=== PATIENT | male | born 1995 | race American Indian/Alaskan Native ===

== ENCOUNTER 2016-10-24 00:48 | Day surgery (SDC) | payer MEDICAID, OTHER ==
[2016-10-24] MEDS ORDERED: Sodium Chloride 0.9% 1,000 ML IV ONE (01:10)
[2016-10-24] MEDS ORDERED: Ondansetron 4 MG/2 ML SDV IVPUSH ONE ×2 (01:11→03:30)
[2016-10-24] MEDS ORDERED: Pantoprazole 40 MG Vial IVPUSH ONE (01:12)
[2016-10-24] MEDS: Sodium Chloride 0.9% 10 ML Syringe FLUSH PRN ×2 (01:24→02:56)
--- NOTE | 2016-10-24 01:32 | EDM.PDOC ---
ED HPI GI/ABDOMINAL - General Chief Complaint: Abdominal Pain Stated Complaint: STOMACH PAIN Time Seen by Provider: 10/24/16 01:04 Source: Reports: Patient History Limitations: Reports: Other (abd. pain) - History of Present Illness INITIAL COMMENTS - FREE TEXT/NARRATIVE: 21 years old w m s/p cholecystrectomy, came to the ed due to severe periumbilical pain 4 hours after eating spicy chicken wings. 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: Reports: NSAIDS - Related Data Allergies/ADRs: Allergies Allergy/AdvReac Type Severity Reaction Status Date / Time No Known Allergies Allergy Verified 10/24/16 00:59 Home Meds: Home Meds Naproxen 500 mg PO BID #28 tablet 05/27/14 [Rx] Pantoprazole [ProTONIX] 40 mg PO DAILY 10/24/16 [History] Past Medical History Gastrointestinal History: Reports: GERD - Past Surgical History GI Surgical History: Reports: Cholecystectomy Social & Family History - Tobacco Use Smoking Status *Q: Current Some Day Smoker Years of Tobacco use: 2 Packs/Tins Daily: 0.1 - Caffeine Use Caffeine Use: Reports: Soda - Recreational Drug Use Recreational Drug Type: Reports: Marijuana/Hashish, Other (see below) Recreational Drug Use Frequency: Daily ED ROS GENERAL - Review of Systems Review Of Systems: See Below Constitutional: Reports: decreased appetite HEENT: Reports: No symptoms Respiratory: Reports: No Symptoms Cardiovascular: Reports: No symptoms Endocrine: Reports: no symptoms GI/Abdominal: Reports: Abdominal pain, Nausea, Vomiting : Reports: no symptoms Musculoskeletal: Reports: no symptoms Skin: Reports: no symptoms Neurological: Reports: No Symptoms Psychiatric: Reports: No symptoms Hematologic/Lymphatic: Reports: no symptoms Immunologic: Reports: no symptoms ED EXAM, GI/ABD - Physical Exam Exam: See Below Exam Limited By: Other (abd. pain) General Appearance: alert, WD/WN, moderate distress Eyes: bilateral: normal appearance Ears: normal external exam Nose: normal inspection, normal mucosa Throat/Mouth: Normal inspection, Normal lips, Normal teeth, Normal gums Head: atraumatic, normocephalic Neck: normal inspection Respiratory/Chest: no respiratory distress, lungs clear, normal breath sounds Cardiovascular: normal peripheral pulses, regular rate, rhythm GI/Abdominal: tenderness, distention (Male) Exam: Deferred Rectal (Males) Exam: Deferred Back Exam: normal inspection Extremities: normal inspection, normal range of motion Neurological: alert, oriented, CN II-XII intact Psychiatric: normal affect Skin Exam: Warm, Dry, Intact, Pallor Course - Vital Signs Text/Narrative:: 21 years old w m s/p cholecystrectomy, came to the ed due to severe periumbilical pain 4 hours after eating spicy chicken wings. 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 No F/C. Last food intake at 9 pm last night. PE:gen abd. pain with hypoactive BS Imaging: Acute Appy, no perforation, no abscess. Labs: WBC 15K with left shift. Impression: Acute Appy Tx: NS, Protronix, Zofran, refused pain meds Consultation: Dr. Spicer, Surgeon: Will see pt in the ed, [facility] OR crew. Plan: appendectomy Last Recorded V/S: Last Vital Signs Temp 36.4 C 10/24/16 01:04 Pulse 64 10/24/16 01:04 Resp 20 10/24/16 01:04 BP 129/106 H 10/24/16 01:04 Pulse Ox 100 10/24/16 01:04 - Orders/Labs/Meds Orders: Active Orders 24 hr Category Date Time Status Abdomen Pelvis w Cont [CT] Stat Exams 10/24/16 01:37 Ordered Piperacillin/Tazobactam [Zosyn] 3.375 gm Med 10/24/16 02:14 Ordered Sodium Chloride 0.9% [Normal Saline] 50 ml IV ONETIME Sodium Chloride 0.9% [Saline Flush] Med 10/24/16 01:20 Active 10 ml FLUSH ASDIRECTED PRN Saline Lock Insert [OM.PC] Routine Oth 10/24/16 01:20 Ordered Medication Orders Piperacillin Sod/Tazobactam (Sod 3.375 gm/ Sodium Chloride) 50 mls @ 100 mls/ hr IV ONETIME STA Stop: 10/24/16 02:43 Sodium Chloride (Saline Flush) 10 ml FLUSH ASDIRECTED PRN PRN Reason: Keep Vein Open Last Admin: 10/24/16 01:24 Dose: 10 ml Labs: Laboratory Tests 10/24/16 10/24/16 10/24/16 Range/Units 01:07 01:15 01:15 WBC 15.0 H (4.5-12.0) X10-3/uL RBC 5.42 (4.30-5.75) x10(6)uL Hgb 15.8 H (11.5-15.5) g/dL Hct 47.4 (30.0-51.3) % MCV 87.5 (80-96) fL MCH 29.2 (27.7-33.6) pg MCHC 33.4 (32.2-35.4) g/dL RDW 11.9 (11.5-15.5) % Plt Count 199 (125-369) X10(3)uL MPV 8.7 (7.4-10.4) fL Neut % (Auto) 68.5 (46-82) % Lymph % (Auto) 25.7 (13-37) % Mcmullen % (Auto) 4.2 (4-12) % Eos % (Auto) 1 (1.0-5.0) % Baso % (Auto) 1 (0-2) % Neut # (Auto) 10.4 H (1.6-8.3) # Lymph # (Auto) 3.8 (0.6-5.0) # Mcmullen # (Auto) 0.6 (0.0-1.3) # Eos # (Auto) 0.1 (0.0-0.8) # Baso # (Auto) 0.1 (0.0-0.2) # Sodium 138 (135-145) mmol/L Potassium 4.1 (3.5-5.3) mmol/L Chloride 104 (100-110) mmol/L Carbon Dioxide 29 (23-29) mmol/L BUN 21 H (5-20) mg/dL Creatinine 1.1 (0.6-1.3) mg/dL Est Cr Clr Drug Dosing 94.25 mL/min Estimated GFR (MDRD) > 60 (>60) BUN/Creatinine Ratio 19.1 (9-20) Glucose 106 (80-116) mg/dL Calcium 9.2 (8.6-10.2) mg/dL Total Bilirubin (0.1-1.3) mg/dL Direct Bilirubin (0.1-0.2) mg/dL AST (5-27) IU/L ALT (14-26) IU/L Alkaline Phosphatase (56-112) IU/L Total Protein (6.0-8.0) g/dL Albumin (3.5-5.2) g/dL Amylase (28-100) U/L Urine Color Yellow (YELLOW) Urine Appearance Clear (CLEAR) Urine pH 6.0 (5.0-6.5) Ur Specific [place] 1.025 (1.010-1.025) Urine Protein Trace (NEGATIVE) mg/dL Urine Glucose (UA) 50 H (NEGATIVE) mg/dL Urine Ketones Negative (NEGATIVE) mg/dL Urine Occult Blood Negative (NEGATIVE) Urine Nitrite Negative (NEGATIVE) Urine Bilirubin Negative (NEGATIVE) Urine Urobilinogen Normal (NEGATIVE) mg/dL Ur Leukocyte Esterase Negative (NEGATIVE) Urine RBC 0-5 (0) Urine WBC 0-5 (0) Ur Squamous Epith Cells Occasional (NS,R,O) Urine Bacteria Rare H (NS) 10/24/16 Range/Units 01:15 WBC (4.5-12.0) X10-3/uL RBC (4.30-5.75) x10(6)uL Hgb (11.5-15.5) g/dL Hct (30.0-51.3) % MCV (80-96) fL MCH (27.7-33.6) pg MCHC (32.2-35.4) g/dL RDW (11.5-15.5) % Plt Count (125-369) X10(3)uL MPV (7.4-10.4) fL Neut % (Auto) (46-82) % Lymph % (Auto) (13-37) % Mcmullen % (Auto) (4-12) % Eos % (Auto) (1.0-5.0) % Baso % (Auto) (0-2) % Neut # (Auto) (1.6-8.3) # Lymph # (Auto) (0.6-5.0) # Mcmullen # (Auto) (0.0-1.3) # Eos # (Auto) (0.0-0.8) # Baso # (Auto) (0.0-0.2) # Sodium (135-145) mmol/L Potassium (3.5-5.3) mmol/L Chloride (100-110) mmol/L Carbon Dioxide (23-29) mmol/L BUN (5-20) mg/dL Creatinine (0.6-1.3) mg/dL Est Cr Clr Drug Dosing mL/min Estimated GFR (MDRD) (>60) BUN/Creatinine Ratio (9-20) Glucose (80-116) mg/dL Calcium (8.6-10.2) mg/dL Total Bilirubin 1.0 (0.1-1.3) mg/dL Direct Bilirubin 0.1 (0.1-0.2) mg/dL AST 28 H (5-27) IU/L ALT 27 H (14-26) IU/L Alkaline Phosphatase 102 (56-112) IU/L Total Protein 7.5 (6.0-8.0) g/dL Albumin 4.7 (3.5-5.2) g/dL Amylase 62 (28-100) U/L Urine Color (YELLOW) Urine Appearance (CLEAR) Urine pH (5.0-6.5) Ur Specific [place] (1.010-1.025) Urine Protein (NEGATIVE) mg/dL Urine Glucose (UA) (NEGATIVE) mg/dL Urine Ketones (NEGATIVE) mg/dL Urine Occult Blood (NEGATIVE) Urine Nitrite (NEGATIVE) Urine Bilirubin (NEGATIVE) Urine Urobilinogen (NEGATIVE) mg/dL Ur Leukocyte Esterase (NEGATIVE) Urine RBC (0) Urine WBC (0) Ur Squamous Epith Cells (NS,R,O) Urine Bacteria (NS) Meds: Medications Generic Name Dose Route Start Last Admin Trade Name Freq PRN Reason Stop Dose Admin Piperacillin Sod/Tazobactam 50 mls @ 100 mls/hr 10/24/16 02:14 Sod 3.375 gm/ Sodium Chloride IV 10/24/16 02:43 ONETIME STA Sodium Chloride 10 ml 10/24/16 01:20 10/24/16 01:24 Saline Flush FLUSH 10 ml ASDIRECTED PRN Administration Keep Vein Open Discontinued Medications Generic Name Dose Route Start Last Admin Trade Name Fidel PRN Reason Stop Dose Admin Sodium Chloride 1,000 mls @ 999 mls/hr 10/24/16 01:10 10/24/16 01:24 Normal Saline IV 10/24/16 02:10 999 mls/hr .BOLUS ONE Administration Iopamidol 100 ml 10/24/16 01:40 10/24/16 01:52 Isovue-370 (76%) IV 10/24/16 01:41 100 ml . DIRECTED ONE Administration Ondansetron HCl 8 mg 10/24/16 01:11 10/24/16 01:29 Zofran IVPUSH 10/24/16 01:12 8 mg ONETIME ONE Administration Pantoprazole Sodium 40 mg 10/24/16 01:12 10/24/16 01:30 Protonix Iv IVPUSH 10/24/16 01:13 40 mg ONETIME ONE Administration Departure - Departure Time of Disposition: 02:24 Disposition: Refer to Observation Condition: fair Clinical Impression: Acute appendicitis Qualifiers: Acute appendicitis type: unspecified acute appendicitis type Qualified Code(s) : K35.80 - Unspecified acute appendicitis - My Orders Last 24 Hours: My Active Orders 10/24/16 01:20 Sodium Chloride 0.9% [Saline Flush] 10 ml FLUSH ASDIRECTED PRN Saline Lock Insert [OM.PC] Routine 10/24/16 01:37 Abdomen Pelvis w Cont [CT] Stat 10/24/16 02:14 Piperacillin/Tazobactam [Zosyn] 3.375 gm Sodium Chloride 0.9% [Normal Saline] 50 ml IV ONETIME - Assessment/Plan Last 24 Hours: My Active Orders 10/24/16 01:20 Sodium Chloride 0.9% [Saline Flush] 10 ml FLUSH ASDIRECTED PRN Saline Lock Insert [OM.PC] Routine 10/24/16 01:37 Abdomen Pelvis w Cont [CT] Stat 10/24/16 02:14 Piperacillin/Tazobactam [Zosyn] 3.375 gm Sodium Chloride 0.9% [Normal Saline] 50 ml IV ONETIME
[2016-10-24] MEDS ORDERED: Iopamidol 755 Mg/ML 100 ML Bottle IV ONE (01:40)
[2016-10-24] MEDS ORDERED: Piperacillin/Tazobactam 3.375 GM in Sodium Chloride 0.9% 50 ML IV STA (02:14)
[2016-10-24] MEDS ORDERED: Neostigmine Methylsulfate 1 MG/ML 5 ML Syringe IV ONE (03:30)
[2016-10-24] MEDS ORDERED: Dexamethasone 4 MG/ML 5 ML MDV IVPUSH ONE (03:30)
[2016-10-24] MEDS ORDERED: diphenhydrAMINE 50 MG/ML SDV IV ONE (03:30)
[2016-10-24] MEDS ORDERED: fentaNYL 100 MCG/2 ML SDV IV ONE (03:30)
[2016-10-24] MEDS ORDERED: Rocuronium 50 MG/5 ML Vial IV ONE (03:30)
[2016-10-24] MEDS ORDERED: Morphine 10 MG/ML Syringe IVPUSH ONE (03:30)
[2016-10-24] MEDS ORDERED: Lactated Ringers 1,000 ML IV ONE (03:30)
[2016-10-24] MEDS ORDERED: Ketorolac 30 MG/ML SDV IVPUSH ONE (03:30)
[2016-10-24] MEDS ORDERED: Midazolam 1 MG/ML 2 ML SDV IV ONE (03:30)
[2016-10-24] MEDS ORDERED: Lidocaine 2% 100 MG/5 ML Syringe IVPUSH ONE (03:30)
[2016-10-24] MEDS ORDERED: Propofol 200 MG/20 ML SDV IV ONE (03:30)
[2016-10-24] MEDS ORDERED: Bupivacaine 0.5%/EPINEPHrine 1:200,000 50 ML MDV ONE (03:32)
[2016-10-24] MEDS ORDERED: Acetaminophen/HYDROcodone 325-5 MG Tab PO PRN (04:20)
[2016-10-24] MEDS ORDERED: Ondansetron 4 MG/2 ML SDV IVPUSH PRN (04:20)
--- NOTE | 2016-10-24 04:21 | PCM.OPNOTE ---
- General Post-Op/Procedure Note Date of Surgery/Procedure: 10/24/16 Operative Procedure(s): Laparoscopic Appendectomy Findings: Mildly acutely inflamed appendix Pre Op Diagnosis: Acute appendicitis Post-Op Diagnosis: Same Anesthesia Technique: General ET tube Primary Surgeon: Claus Spicer Pathology: Appendix Output, Urine Amount: 0 EBL in mLs: 20 Complications: None Condition: Good
[2016-10-24] MEDS ORDERED: Pneumococcal Polyvalent-23 Vaccine 0.5 ML SDV IM ONE (05:40)
--- NOTE | 2016-10-24 06:09 | HP ---
ADMISSION DATE: 10/24/2016 HISTORY OF PRESENT ILLNESS: This 21-year-old male, developed abdominal pain after eating his supper including chicken wings last night. He describes the abdominal pain as being severe and in the mid abdomen. It persisted and was associated with several episodes of vomiting. With persistence of the pain, he presented to the emergency room where he was noted to have abdominal tenderness. The patient underwent evaluation including laboratory studies, [place] [address], hemoglobin of 15.8, unremarkable liver function tests and urinalysis. He went on to have a CT scan of the abdomen, which was interpreted by the radiologist as showing evidence of a dilated acutely inflamed appendix. PAST MEDICAL HISTORY: Shows only previous surgery was a cholecystectomy in 2010. His only chronic illness is GERD, for which he takes Protonix. ALLERGIES: He has no known drug allergies. FAMILY HISTORY: Notable for coronary artery disease in his father, diabetes in his mother, and colon cancer in an aunt. SOCIAL HISTORY: The patient is currently not . He works for [employer] and is a . REVIEW OF SYSTEMS: The patient recently has otherwise been feeling well. He denies any recent cough, cold, or sore throat symptoms. No chest pain or shortness of breath. No joint or back pain. No extremity swelling. He denies any difficulty voiding. PHYSICAL EXAMINATION: VITAL SIGNS: Temperature is 97.5, pulse 64, blood pressure is 129/106. GENERAL: The patient is an adult male. He is currently in no acute distress. HEENT: Head is normocephalic. No scleral icterus. Throat is clear without hyperemia. NECK: Supple. No cervical masses. HEART: Regular without murmur. LUNGS: Clear. Breath sounds are equal. There is no wheezing. He has no CVA tenderness to percussion. ABDOMEN: Soft. There is tenderness to direct palpation in the epigastrium as well as in the right lower quadrant. No guarding is noted at this time. No abdominal masses or distention is identified. EXTREMITIES: Show no calf tenderness or ankle edema. NEUROLOGIC: Grossly normal. IMPRESSION: Acute appendicitis. PLAN: I advised laparoscopic appendectomy, to which the patient agrees. I have discussed the proposed operative procedure with the patient, reviewed with him indications, options, both operative and non operative as well as risks of surgery including, but not limited to bleeding, infection, and organ injury. We also discussed the possibility of needing to convert to a laparotomy. He appears to understand and agrees to proceed. /[id number] SHAJI/ROXY XIONG
[2016-10-24] MEDS: Morphine 2 MG/ML Syringe IVPUSH PRN ×3 (06:11→10:38)
--- NOTE | 2016-10-24 06:51 | OR ---
DATE OF OPERATION: 10/24/2016 SURGEON: Claus Spicer MD PREOPERATIVE DIAGNOSIS: Acute appendicitis. POSTOPERATIVE DIAGNOSIS: Acute appendicitis. OPERATION PERFORMED: Laparoscopic appendectomy. INDICATIONS FOR SURGERY: This 21-year-old male presented with a several-hour history of mid abdominal pain. Evaluation identified an elevated serum white blood cell count and findings on CT scan consistent with acute appendicitis. FINDINGS: The patient's appendix does appear mildly inflamed with some induration and [id number] dilation. No exudate or evidence of perforation is seen. The adjacent cecum and small bowel appears normal. No other abnormalities are noted laparoscopically. PROCEDURE IN DETAIL: The patient was taken to the operating room. He is given general endotracheal anesthesia and the abdomen is sterilely prepped and draped. An infraumbilical stab wound incision was made. Through this, a Veress needle was inserted and pneumoperitoneum via this needle to a pressure of 15 mmHg was achieved with carbon dioxide. The Veress needle was then replaced with a 5-mm trocar into which the 5-mm variable angled laparoscopic camera is inserted. Under direct visualization, a 12-mm trocar was placed in the suprapubic midline and another 5-mm trocar was placed in the right lower quadrant. All trocar sites were infiltrated with Marcaine prior to incision. Intra-abdominal inspection was carried out and attention was turned to the appendix. It is exposed and a window is made in the mesoappendix adjacent to the cecum. An Endo MADDISON stapler with 2.5-mm staple length was then fired across the appendiceal cecal junction dividing the appendix from the cecum. Careful examination of the cecal staple line showed it to be of good quality. Additional firings of the Endo MADDISON using 2.5-mm staple length was then carried out across the mesoappendix, eventually completely dividing the mesoappendix and freeing the appendix. The appendix was then placed into an Endo retrieval bag and extracted from the abdomen. Irrigation of the operative region was then performed and careful inspection showed no sign of bleeding or any other complicating process, from the staple lines. With no evidence of complication, the pneumoperitoneum was evacuated and the trocars were removed under direct visualization. The fascia of the largest trocar site was closed with a [id number] 0 Vicryl suture. The wounds were irrigated with Betadine and saline solution. Skin incisions were approximated with interrupted 4-0 Vicryl in a subcuticular stitch. Steri-Strips and benzoin were applied. Antibiotic ointment and sterile dressings were placed. The patient was then awakened, extubated, and taken from the operating room in satisfactory condition. ESTIMATED BLOOD LOSS: 20 mL. COMPLICATIONS: None. PROGNOSIS: Good. /[id number] SHAJI/ROXY
[2016-10-24] MEDS: Omeprazole 20 MG Cap.CR PO SCH (08:28)
[2016-10-24] MEDS ORDERED: Pantoprazole 40 MG Tab.CR PO SCH (09:00)
[2016-10-24] MEDS: cefOXitin 2 GM in Sodium Chloride 0.9% 50 ML IV SCH ×3 (09:08→20:32)
[2016-10-24] MEDS: Lactated Ringers 1,000 ML IV SCH (13:34)
[2016-10-24] MEDS: Acetaminophen/HYDROcodone 325-5 MG Tab PO PRN ×3 (13:35→21:58)
[2016-10-25 00:36] VITALS: BP 107/63
[2016-10-25] MEDS: Lactated Ringers 1,000 ML IV SCH (04:56)
--- NOTE | 2016-10-25 07:11 | PCM.SURGPN ---
- General Info Date of Service: 10/25/16 Date of Surgery/Procedure: 10/24/16 POD#: 1 Post-Op Diagnosis: Acute Appendicitis Functional Status: Reports: pain controlled - Review of Systems General: Denies: Fever Pulmonary: Denies: shortness of breath Gastrointestinal: Reports: Flatus. Denies: Nausea, Vomiting Musculoskeletal: Denies: leg pain - Patient Data Vitals - most recent: Last Vital Signs Temp 97.8 F 10/25/16 00:00 Pulse 66 10/25/16 00:00 Resp 18 10/25/16 00:00 BP 107/63 10/25/16 00:00 Pulse Ox 98 10/25/16 00:00 Weight - most recent: 214 lb I&O - last 24 hours: Intake & Output 10/24/16 10/25/16 10/25/16 22:59 06:59 14:59 Intake Total 1094 Output Total 450 Balance 644 Med Orders - Current: Current Medications Hydrocodone Bitart/Acetaminophen (Elizabeth 325-5 Mg) 1 tab PO Q4H PRN PRN Reason: Pain (mild 1-3) Hydrocodone Bitart/Acetaminophen (Elizabeth 325-5 Mg) 2 tab PO Q4H PRN PRN Reason: Pain (moderate 4-6) Last Admin: 10/24/16 21:58 Dose: 2 tab Lactated Ringer's (Ringers, Lactated) 1,000 mls @ 50 mls/hr IV ASDIRECTED ELADIO Last Admin: 10/25/16 04:56 Dose: 100 mls/hr Morphine Sulfate (Morphine) 2 mg IVPUSH Q1H PRN PRN Reason: Pain (severe 7-10) Last Admin: 10/24/16 10:38 Dose: 2 mg Omeprazole (Omeprazole) 20 mg PO ACBREAKFAST ELADIO Last Admin: 10/24/16 08:28 Dose: 20 mg Ondansetron HCl (Zofran) 4 mg IVPUSH Q6H PRN PRN Reason: Nausea/Vomiting Sodium Chloride (Saline Flush) 10 ml FLUSH ASDIRECTED PRN PRN Reason: Keep Vein Open Last Admin: 10/24/16 02:56 Dose: 10 ml Discontinued Medications Bupivacaine HCl/Epinephrine Bitart (Marcaine 0.5%/Epinephrine 1:200,000) 20 ml .XX .STK-MED ONE Stop: 10/24/16 03:33 Last Admin: 10/24/16 03:32 Dose: 20 ml Sodium Chloride (Normal Saline) 1,000 mls @ 999 mls/hr IV .BOLUS ONE Stop: 10/24/16 02:10 Last Admin: 10/24/16 01:24 Dose: 999 mls/hr Piperacillin Sod/Tazobactam (Sod 3.375 gm/ Sodium Chloride) 50 mls @ 100 mls/ hr IV ONETIME STA Stop: 10/24/16 02:43 Last Admin: 10/24/16 02:34 Dose: 100 mls/hr Cefoxitin Sodium 2 gm/ Sodium (Chloride) 50 mls @ 100 mls/hr IV Q6H ELADIO Stop: 10/24/16 20:59 Last Admin: 10/24/16 20:32 Dose: 100 mls/hr Iopamidol (Isovue-370 (76%)) 100 ml IV . DIRECTED ONE Stop: 10/24/16 01:41 Last Admin: 10/24/16 01:52 Dose: 100 ml Ondansetron HCl (Zofran) 8 mg IVPUSH ONETIME ONE Stop: 10/24/16 01:12 Last Admin: 10/24/16 01:29 Dose: 8 mg Pantoprazole Sodium (Protonix Iv) 40 mg IVPUSH ONETIME ONE Stop: 10/24/16 01:13 Last Admin: 10/24/16 01:30 Dose: 40 mg Pneumococcal Polyvalent Vaccine (Pneumovax 23) 0.5 ml IM .ONCE ONE Stop: 10/24/16 05:41 - Exam Wound/Incisions: healing well. No: erythema General: alert, oriented Lungs: Normal respiratory effort Abdomen: soft, no distension, tenderness (minimal near incisions) Extremities: no tenderness/swelling - Problem List Review Problem List Initiated/Reviewed/Updated: Yes - My Orders Last 24 Hours: Active Orders 24 hr Category Date Time Status Clear Liquid Diet [DIET] Diet 10/24/16 Breakfast Ordered Full Liquid Diet [DIET] Diet 10/25/16 Breakfast Ordered Omeprazole Med 10/24/16 07:30 Active 20 mg PO ACBREAKFAST Medication Orders Hydrocodone Bitart/Acetaminophen (Elizabeth 325-5 Mg) 1 tab PO Q4H PRN PRN Reason: Pain (mild 1-3) Hydrocodone Bitart/Acetaminophen (Elizabeth 325-5 Mg) 2 tab PO Q4H PRN PRN Reason: Pain (moderate 4-6) Last Admin: 10/24/16 21:58 Dose: 2 tab Admin: 10/24/16 17:04 Dose: 2 tab Admin: 10/24/16 13:35 Dose: 2 tab Lactated Ringer's (Ringers, Lactated) 1,000 mls @ 50 mls/hr IV ASDIRECTED ELADIO Last Admin: 10/25/16 04:56 Dose: 100 mls/hr Infusion: 10/24/16 23:34 Dose: 100 mls/hr Admin: 10/24/16 13:34 Dose: 100 mls/hr Morphine Sulfate (Morphine) 2 mg IVPUSH Q1H PRN PRN Reason: Pain (severe 7-10) Last Admin: 10/24/16 10:38 Dose: 2 mg Admin: 10/24/16 08:28 Dose: 2 mg Admin: 10/24/16 06:11 Dose: 2 mg Omeprazole (Omeprazole) 20 mg PO ACBREAKFAST [facility] Last Admin: 10/24/16 08:28 Dose: 20 mg Ondansetron HCl (Zofran) 4 mg IVPUSH Q6H PRN PRN Reason: Nausea/Vomiting Sodium Chloride (Saline Flush) 10 ml FLUSH ASDIRECTED PRN PRN Reason: Keep Vein Open Last Admin: 10/24/16 02:56 Dose: 10 ml Admin: 10/24/16 01:24 Dose: 10 ml - Assessment Assessment (Free Text/Narrative):: Doing Well POD#1 Appendectomy - Plan Plan (Free Text/Narrative):: Discharge if does well for breakfast Off Work until November 04 then back to light duty Rx Hydrocodone no heavy lifting for 3 weeks Light diet until bowels working well
[2016-10-25] MEDS: Omeprazole 20 MG Cap.CR PO SCH (08:07)
== END 2016-10-25 08:53 | disposition home or self-care (01) ==
LOC: FB.ED 00:48 → FB.SDS 02:16 → FB.MS 05:19 → FB.SDS 10-25 08:53
PROVIDERS: ATTEND Surgery
PROC: 0DTJ4ZZ Resection of Appendix, Percutaneous Endoscopic Approach (ICD-10-PCS; principal; 2016-10-24)
DX: K35.80 Unspecified acute appendicitis (principal); K21.9 Gastro-esophageal reflux disease without esophagitis; F17.200 Nicotine dependence, unspecified, uncomplicated
CPT/HCPCS: 36415; 44970; 74177; 80048; 80076; 81001; 82150; 85025; 88304; 94150; 96361; 96365; 96375; 99285; A9270; C9113; G0009; J0694; J1100; J1200; J1885; J2250; J2270; J2405; J2543; J2704; J3010; J7040; J7050; J7120; Q9967; 90732

== ENCOUNTER 2017-09-17 23:38 | Emergency (ER) | payer OTHER ==
[2017-09-18] MEDS ORDERED: Alum Hydroxide/Mag Hydroxide 15 ML, Lidocaine 2% 15 ML PO ONE ×2 (00:01)
[2017-09-18] MEDS ORDERED: Ondansetron 8 MG Tab.DIS PO ONE (00:02)
[2017-09-18] MEDS ORDERED: Thiamine 200 MG/2 ML MDV IM STA (00:17)
--- NOTE | 2017-09-18 00:18 | EDM.PDOC ---
ED HPI GENERAL MEDICAL PROBLEM - General Chief Complaint: Chest Pain Stated Complaint: CHEST PAIN Time Seen by Provider: 09/17/17 23:40 Source of Information: Reports: Patient History Limitations: Reports: No Limitations - History of Present Illness INITIAL COMMENTS - FREE TEXT/NARRATIVE: 22 y.o.w m with h/o ETOH abuse, Hiatal hernia and anxiety, came to the ed 1 day after heavily drinking due to Vomiting 15 times with upper abd. pain and chest pain. No trauma. Pt had similar symptoms in the past. He took a protonix in am. No other acute medical issues. BP 150/90 RR 18 temp 36.8 Pulse ox 100% on RA Pulse 81 Onset Date: 09/17/17 Onset Time: 13:00 Duration: Hour(s):, Intermittent Location: Reports: Chest, Abdomen Quality: Reports: Ache, Burning, Same as Previous Episode Severity: Moderate Improves with: Reports: Rest Worsens with: Reports: Eating Context: Reports: Other (etoh abuse) Associated Symptoms: Reports: Chest Pain, Nausea/Vomiting Other Treatments [employer]: Rolaids Midsternal chest & LLQ Pain Score (Numeric/FACES): 7 - Related Data Allergies Allergy/AdvReac Type Severity Reaction Status Date / Time No Known Allergies Allergy Verified 09/17/17 23:52 Home Meds: Home Meds Pantoprazole [ProTONIX] 40 mg PO DAILY 10/24/16 [History] Past Medical History Gastrointestinal History: Reports: GERD Psychiatric History: Reports: Addiction, Anxiety, Panic Attack Other Psychiatric History: hx ETOH abuse & drug abuse (pot) Endocrine/Metabolic History: Reports: Obesity/BMI 30+ - Past Surgical History HEENT Surgical History: Reports: Oral Surgery GI Surgical History: Reports: Appendectomy, Cholecystectomy Social & Family History - Family History Family Medical History: Noncontributory - Tobacco Use Smoking Status *Q: Current Every Day Smoker Years of Tobacco use: 1 Packs/Tins Daily: 0 - Caffeine Use Caffeine Use: Reports: Soda - Alcohol Use Days Per Week of Alcohol Use: 1 Number of Drinks Per Day: 1 Total Drinks Per Week: 1 - Recreational Drug Use Recreational Drug Use: Yes Recreational Drug Type: Reports: Marijuana/Hashish Recreational Drug Use Frequency: Monthly ED ROS GENERAL - Review of Systems Review Of Systems: See Below Constitutional: Reports: Weakness HEENT: Reports: No Symptoms Respiratory: Reports: No Symptoms Cardiovascular: Reports: Chest Pain Endocrine: Reports: No Symptoms GI/Abdominal: Reports: Abdominal Pain : Reports: No Symptoms Musculoskeletal: Reports: No Symptoms Skin: Reports: No Symptoms Neurological: Reports: No Symptoms Psychiatric: Reports: No Symptoms Hematologic/Lymphatic: Reports: No Symptoms Immunologic: Reports: No Symptoms ED EXAM, GENERAL - Physical Exam Exam: See Below Exam Limited By: No Limitations General Appearance: Alert, WD/WN, Mild Distress, Obese Eye Exam: Bilateral Eye: Normal Inspection Ears: Normal External Exam Ear Exam: Bilateral Ear: Auricle Normal Nose: Normal Inspection, Normal Mucosa Throat/Mouth: Normal Inspection, Normal Lips Head: Atraumatic, Normocephalic Neck: Normal Inspection, Supple, Non-Tender, Full Range of Motion Respiratory/Chest: No Respiratory Distress, Lungs Clear, Normal Breath Sounds, Chest Non-Tender Cardiovascular: Normal Peripheral Pulses, Regular Rate, Rhythm, No Edema, No Gallop, No JVD, No Murmur, No Rub Peripheral Pulses: 1+: Radial (L) GI/Abdominal: Normal Bowel Sounds, Tender (epigastric) (Male) Exam: No Hernia Rectal (Males) Exam: Deferred Back Exam: Normal Inspection, Full Range of Motion Extremities: Normal Inspection, Normal Range of Motion, Non-Tender, No Pedal Edema Neurological: Alert, Oriented, CN II-XII Intact, Normal Cognition, Normal Gait, No Motor/Sensory Deficits Psychiatric: Normal Affect, Normal Mood Skin Exam: Warm, Dry, Intact, No Rash, Pallor Lymphatic: No Adenopathy EKG INTERPRETATION EKG Date: 09/17/17 Time: 23:50 Rhythm: NSR Rate (Beats/Min): 85 [place]osh[place]: RAD-Right [place] Deviation P-Wave: Present QRS: Normal ST-T: Normal QT: Normal Comparison: NA - No Prior EKG Course - Vital Signs Text/Narrative:: 22 y.o.w m with h/o ETOH abuse, Hiatal hernia and anxiety, came to the ed 1 day after heavily drinking due to Vomiting 15 times with upper abd. pain and chest pain. No trauma. Pt had similar symptoms in the past. He took a protonix in am. No other acute medical issues. BP 150/90 RR 18 temp 36.8 Pulse ox 100% on RA Pulse 81 PE: Epigastric tenderness, enlarged liver Labs: CBC, BMP, Trop neg ETOH 0.03 UDS was neg Impression: Atypical chest pain, hepatomegaly, H/O of ETOH abuse, Gastritis, Anxiety, elevated liver enzymes. Tx: Zofran, GI cocktail, (Pt took Protonix in am), Xanex Reexam: Improved, pt was able take fluids well. Xanax was given as pill to take at home at bed time. Plan: D/C with instructions Last Recorded V/S: Last Vital Signs Temp 36.5 C 09/17/17 23:40 Pulse 86 09/18/17 01:42 Resp 18 09/18/17 01:42 BP 142/86 H 09/18/17 01:42 Pulse Ox 99 09/18/17 01:42 - Orders/Labs/Meds Orders: Active Orders 24 hr Category Date Time Status EKG Documentation Completion [RC] ASDIRECTED Care 09/17/17 23:54 Active EKG 12 Lead [EK] Routine Ther 09/17/17 23:54 Ordered Labs: Laboratory Tests 09/17/17 09/17/17 09/17/17 Range/Units 23:58 23:58 23:58 WBC 11.5 (4.5-12.0) X10-3/uL RBC 5.39 (4.30-5.75) x10(6)uL Hgb 16.2 H (11.5-15.5) g/dL Hct 46.9 (30.0-51.3) % MCV 87.0 (80-96) fL MCH 30.0 (27.7-33.6) pg MCHC 34.4 (32.2-35.4) g/dL RDW 12.1 (11.5-15.5) % Plt Count 231 (125-369) X10(3)uL MPV 8.7 (7.4-10.4) fL Neut % (Auto) 61.8 (46-82) % Lymph % (Auto) 30.0 (13-37) % Ralls % (Auto) 6.3 (4-12) % Eos % (Auto) 2 (1.0-5.0) % Baso % (Auto) 0 (0-2) % Neut # (Auto) 7.1 (1.6-8.3) # Lymph # (Auto) 3.5 (0.6-5.0) # Ralls # (Auto) 0.7 (0.0-1.3) # Eos # (Auto) 0.2 (0.0-0.8) # Baso # (Auto) 0.0 (0.0-0.2) # Sodium 142 (135-145) mmol/L Potassium 3.7 (3.5-5.3) mmol/L Chloride 102 (100-110) mmol/L Carbon Dioxide 27 (21-32) mmol/L BUN 18 (7-18) mg/dL Creatinine 1.1 (0.70-1.30) mg/dL Est Cr Clr Drug Dosing 100.18 mL/min Estimated GFR (MDRD) > 60 (>60) BUN/Creatinine Ratio 16.4 (9-20) Glucose 106 (80-116) mg/dL Calcium 9.5 (8.6-10.2) mg/dL Total Bilirubin 0.9 (0.1-1.3) mg/dL AST 39 H (5-25) IU/L ALT 53 H (12-36) U/L Alkaline Phosphatase 105 (56-112) IU/L Troponin I < 0.017 L (<0.017-0.056) ng/mL Total Protein 7.7 (6.0-8.0) g/dL Albumin 4.5 (3.5-5.2) g/dL Globulin 3.2 g/dL Albumin/Globulin Ratio 1.4 Amylase (25-115) U/L Urine Color (YELLOW) Urine Appearance (CLEAR) Urine pH (5.0-6.5) Ur Specific Crenshaw (1.010-1.025) Urine Protein (NEGATIVE) mg/dL Urine Glucose (UA) (NEGATIVE) mg/dL Urine Ketones (NEGATIVE) mg/dL Urine Occult Blood (NEGATIVE) Urine Nitrite (NEGATIVE) Urine Bilirubin (NEGATIVE) Urine Urobilinogen (NEGATIVE) mg/dL Ur Leukocyte Esterase (NEGATIVE) Urine RBC (0) Urine WBC (0) Ur Squamous Epith Cells (NS,R,O) Urine Bacteria (NS) Urine Opiates Screen (NEGATIVE) Ur Oxycodone Screen (NEGATIVE) Ur Propoxyphene Screen (NEGATIVE) Ur Barbituates Screen (NEGATIVE) Ur Tricyclics Screen (NEGATIVE) Ur Phencyclidine Scrn (NEGATIVE) Ur Amphetamine Screen (NEGATIVE) Urine MDMA Screen (NEGATIVE) U Benzodiazepines Scrn (NEGATIVE) U Cocaine Metab Screen (NEGATIVE) U Marijuana (THC) Screen (NEGATIVE) Ethyl Alcohol (<0.03) % 09/17/17 09/18/17 09/18/17 Range/Units 23:58 00:01 00:54 WBC (4.5-12.0) X10-3/uL RBC (4.30-5.75) x10(6)uL Hgb (11.5-15.5) g/dL Hct (30.0-51.3) % MCV (80-96) fL MCH (27.7-33.6) pg MCHC (32.2-35.4) g/dL RDW (11.5-15.5) % Plt Count (125-369) X10(3)uL MPV (7.4-10.4) fL Neut % (Auto) (46-82) % Lymph % (Auto) (13-37) % Ralls % (Auto) (4-12) % Eos % (Auto) (1.0-5.0) % Baso % (Auto) (0-2) % Neut # (Auto) (1.6-8.3) # Lymph # (Auto) (0.6-5.0) # Ralls # (Auto) (0.0-1.3) # Eos # (Auto) (0.0-0.8) # Baso # (Auto) (0.0-0.2) # Sodium (135-145) mmol/L Potassium (3.5-5.3) mmol/L Chloride (100-110) mmol/L Carbon Dioxide (21-32) mmol/L BUN (7-18) mg/dL Creatinine (0.70-1.30) mg/dL Est Cr Clr Drug Dosing mL/min Estimated GFR (MDRD) (>60) BUN/Creatinine Ratio (9-20) Glucose (80-116) mg/dL Calcium (8.6-10.2) mg/dL Total Bilirubin (0.1-1.3) mg/dL AST (5-25) IU/L ALT (12-36) U/L Alkaline Phosphatase (56-112) IU/L Troponin I (<0.017-0.056) ng/mL Total Protein (6.0-8.0) g/dL Albumin (3.5-5.2) g/dL Globulin g/dL Albumin/Globulin Ratio Amylase 59 (25-115) U/L Urine Color Yellow (YELLOW) Urine Appearance Clear (CLEAR) Urine pH 7.0 H (5.0-6.5) Ur Specific Crenshaw 1.010 (1.010-1.025) Urine Protein Negative (NEGATIVE) mg/dL Urine Glucose (UA) Normal (NEGATIVE) mg/dL Urine Ketones Negative (NEGATIVE) mg/dL Urine Occult Blood Negative (NEGATIVE) Urine Nitrite Negative (NEGATIVE) Urine Bilirubin Negative (NEGATIVE) Urine Urobilinogen 1 H (NEGATIVE) mg/dL Ur Leukocyte Esterase Negative (NEGATIVE) Urine RBC 0-5 (0) Urine WBC 0-5 (0) Ur Squamous Epith Cells Rare (NS,R,O) Urine Bacteria Few H (NS) Urine Opiates Screen (NEGATIVE) Ur Oxycodone Screen (NEGATIVE) Ur Propoxyphene Screen (NEGATIVE) Ur Barbituates Screen (NEGATIVE) Ur Tricyclics Screen (NEGATIVE) Ur Phencyclidine Scrn (NEGATIVE) Ur Amphetamine Screen (NEGATIVE) Urine MDMA Screen (NEGATIVE) U Benzodiazepines Scrn (NEGATIVE) U Cocaine Metab Screen (NEGATIVE) U Marijuana (THC) Screen (NEGATIVE) Ethyl Alcohol < 0.03 (<0.03) % 09/18/17 Range/Units 00:54 WBC (4.5-12.0) X10-3/uL RBC (4.30-5.75) x10(6)uL Hgb (11.5-15.5) g/dL Hct (30.0-51.3) % MCV (80-96) fL MCH (27.7-33.6) pg MCHC (32.2-35.4) g/dL RDW (11.5-15.5) % Plt Count (125-369) X10(3)uL MPV (7.4-10.4) fL Neut % (Auto) (46-82) % Lymph % (Auto) (13-37) % Ralls % (Auto) (4-12) % Eos % (Auto) (1.0-5.0) % Baso % (Auto) (0-2) % Neut # (Auto) (1.6-8.3) # Lymph # (Auto) (0.6-5.0) # Ralls # (Auto) (0.0-1.3) # Eos # (Auto) (0.0-0.8) # Baso # (Auto) (0.0-0.2) # Sodium (135-145) mmol/L Potassium (3.5-5.3) mmol/L Chloride (100-110) mmol/L Carbon Dioxide (21-32) mmol/L BUN (7-18) mg/dL Creatinine (0.70-1.30) mg/dL Est Cr Clr Drug Dosing mL/min Estimated GFR (MDRD) (>60) BUN/Creatinine Ratio (9-20) Glucose (80-116) mg/dL Calcium (8.6-10.2) mg/dL Total Bilirubin (0.1-1.3) mg/dL AST (5-25) IU/L ALT (12-36) U/L Alkaline Phosphatase (56-112) IU/L Troponin I (<0.017-0.056) ng/mL Total Protein (6.0-8.0) g/dL Albumin (3.5-5.2) g/dL Globulin g/dL Albumin/Globulin Ratio Amylase (25-115) U/L Urine Color (YELLOW) Urine Appearance (CLEAR) Urine pH (5.0-6.5) Ur Specific C[place] (1.010-1.025) Urine Protein (NEGATIVE) mg/dL Urine Glucose (UA) (NEGATIVE) mg/dL Urine Ketones (NEGATIVE) mg/dL Urine Occult Blood (NEGATIVE) Urine Nitrite (NEGATIVE) Urine Bilirubin (NEGATIVE) Urine Urobilinogen (NEGATIVE) mg/dL Ur Leukocyte Esterase (NEGATIVE) Urine RBC (0) Urine WBC (0) Ur Squamous Epith Cells (NS,R,O) Urine Bacteria (NS) Urine Opiates Screen Negative (NEGATIVE) Ur Oxycodone Screen Negative (NEGATIVE) Ur Propoxyphene Screen Negative (NEGATIVE) Ur Barbituates Screen Negative (NEGATIVE) Ur Tricyclics Screen Negative (NEGATIVE) Ur Phencyclidine Scrn Negative (NEGATIVE) Ur Amphetamine Screen Negative (NEGATIVE) Urine MDMA Screen Negative (NEGATIVE) U Benzodiazepines Scrn Negative (NEGATIVE) U Cocaine Metab Screen Negative (NEGATIVE) U Marijuana (THC) Screen Negative (NEGATIVE) Ethyl Alcohol (<0.03) % Meds: Medications Discontinued Medications Generic Name Dose Route Start Last Admin Trade Name Freq PRN Reason Stop Dose Admin Alprazolam 0.25 mg 09/18/17 21:00 Xanax PO BEDTIME ELADIO Alprazolam 0.25 mg 09/18/17 01:47 09/18/17 01:53 Xanax PO 09/18/17 01:48 0.25 mg ONETIME ONE Administration Al Hydroxide/Mg Hydroxide 15 0 ml 09/18/17 00:01 09/18/17 00:11 ml/ Lidocaine HCl 15 ml PO 09/18/17 00:02 15 ml ONETIME ONE Administration Ketorolac Tromethamine 60 mg 09/18/17 00:51 09/18/17 01:04 Toradol IM 09/18/17 00:52 60 mg ONETIME ONE Administration Ondansetron HCl 8 mg 09/18/17 00:02 09/18/17 00:11 Zofran Odt PO 09/18/17 00:03 8 mg ONETIME ONE Administration Thiamine HCl 100 mg 09/18/17 00:17 09/18/17 01:05 Vitamin B-1 IM 09/18/17 00:18 100 mg ONETIME STA Administration Departure - Departure Time of Disposition: 01:08 Disposition: Home, Self-Care 01 Condition: Good Clinical Impression: Atypical chest pain, Anxiety, Liver enzyme elevation Gastritis due to alcohol without hemorrhage Qualifiers: Chronicity: unspecified Qualified Code(s): K29.20 - Alcoholic gastritis without bleeding Instructions: Alprazolam tablets, Heartburn, [id number], Nonspecific Chest Pain, [id number] Referrals: PCP,None [Primary Care Provider] - Forms: ED Department Discharge Additional Instructions: Please no alcohol, please cont protonix daily, avoid spicy food. Please f/u with your PMD, please come back if your symptoms get worse acutely. - My Orders Last 24 Hours: My Active Orders 09/17/17 23:54 EKG Documentation Completion [RC] ASDIRECTED EKG 12 Lead [EK] Routine - Assessment/Plan Last 24 Hours: My Active Orders 09/17/17 23:54 EKG Documentation Completion [RC] ASDIRECTED EKG 12 Lead [EK] Routine
[2017-09-18] MEDS ORDERED: Ketorolac 60 MG/2 ML SDV IM ONE (00:51)
[2017-09-18] MEDS ORDERED: ALPRAZolam 0.25 MG Tab PO ONE (01:47)
[2017-09-18 02:35] VITALS: BP 142/86
[2017-09-18] MEDS ORDERED: ALPRAZolam 0.25 MG Tab PO SCH (21:00)
== END 2017-09-18 01:55 | disposition home or self-care (01) ==
LOC: FB.ED 23:38
DX: K29.20 Alcoholic gastritis without bleeding (principal); R07.89 Other chest pain; F41.9 Anxiety disorder, unspecified; R16.0 Hepatomegaly, not elsewhere classified; R74.8 Abnormal levels of other serum enzymes; F17.210 Nicotine dependence, cigarettes, uncomplicated; Z79.899 Other long term (current) drug therapy; Z90.49 Acquired absence of other specified parts of digestive tract
CPT/HCPCS: 36415; 80053; 80305; 81001; 82150; 84484; 85025; 93005; 96372; 99284; A9270; G0480; J1885; J3411

== ENCOUNTER 2018-02-24 06:44 | Day surgery (SDC) | payer OTHER ==
[2018-02-24] MEDS ORDERED: Lactated Ringers 1,000 ML IV SCH (06:45)
[2018-02-24] MEDS ORDERED: Midazolam 1 MG/ML 2 ML SDV IV ONE (08:00)
[2018-02-24] MEDS ORDERED: Propofol 200 MG/20 ML SDV IV ONE (08:00)
--- NOTE | 2018-02-24 08:31 | PCM.OPNOTE ---
- General Post-Op/Procedure Note Date of Surgery/Procedure: 02/24/18 Operative Procedure(s): c scope with bx Findings: normal colon Pre Op Diagnosis: hx of diarrhea and l sided abd pain Post-Op Diagnosis: nl exam Anesthesia Technique: MAC Primary Surgeon: Kevyn Cadena Anesthesia Provider: Teresa Gaytan Pathology: random colon bx Complications: None Condition: Good Free Text/Narrative:: see dictation
[2018-02-24 09:52] VITALS: BP 125/84
--- NOTE | 2018-02-24 12:12 | OR ---
DATE OF OPERATION: 02/24/2018 SURGEON: Kevyn Cadena MD PROCEDURES PERFORMED: Colonoscopy with cold forceps biopsy. PREOPERATIVE DIAGNOSIS: Personal history of diarrhea. Family history of Crohn disease. POSTOPERATIVE DIAGNOSIS: Normal colon. INDICATIONS FOR PROCEDURE: This is a 23-year-old male who is referred with a longstanding history of loose stools. He has undergone a CT scan, which demonstrated questionable narrowing in his jejunum. He has had some left-sided pain as well. Of note, he has a family history of Crohn disease; however, his laboratory evaluation for signs of inflammation have been negative to date. He was offered and accepted a colonoscopy as part of his workup. DESCRIPTION OF PROCEDURE: After an excellent IV sedation was administered, digital rectal exam was performed. No marked abnormality was noted. Flexible colonoscope was inserted and advanced to the cecum without difficulty. The prep was excellent. The following findings were noted. Ascending colon, unremarkable and random biopsies were taken. Transverse colon, unremarkable and random biopsies were taken. Descending colon, unremarkable and random biopsies were taken. Sigmoid and rectum, unremarkable and random biopsies were taken. Attempts, when we were in the cecum, to intubate the terminal ileum were unsuccessful. The patient tolerated the procedure well and was taken to recovery room in a good condition. Results by letter. /[id number] /MODL
== END 2018-02-24 10:10 | disposition home or self-care (01) ==
LOC: FB.SDS 06:44
PROVIDERS: ATTEND Surgery
DX: R19.7 Diarrhea, unspecified (principal); R10.12 Left upper quadrant pain; R93.5 Abnormal findings on diagnostic imaging of other abdominal regions, including retroperitoneum; F41.9 Anxiety disorder, unspecified; K21.9 Gastro-esophageal reflux disease without esophagitis; Z87.891 Personal history of nicotine dependence; Z79.899 Other long term (current) drug therapy; Z83.79 Family history of other diseases of the digestive system
CPT/HCPCS: 45380; 88305; J2250; J2704; J7120

== ENCOUNTER 2018-07-22 09:04 | Day surgery (SDC) | payer BC, OTHER ==
[~2018-07-22 09:04] MED LIST: Lactated Ringers 1,000 ML IV SCH; Sodium Chloride 0.9% 10 ML Syringe FLUSH PRN
[2018-07-22] MEDS ORDERED: Midazolam 1 MG/ML 2 ML SDV IV ONE (09:05)
[2018-07-22] MEDS ORDERED: Lidocaine 2% 100 MG/5 ML Syringe IVPUSH ONE (09:05)
[2018-07-22] MEDS ORDERED: Propofol 200 MG/20 ML SDV IV ONE (09:05)
--- NOTE | 2018-07-22 11:12 | PCM.OPNOTE ---
- General Post-Op/Procedure Note Date of Surgery/Procedure: 07/22/18 Operative Procedure(s): egd with bx Findings: gastritis and esophagitis Pre Op Diagnosis: abd pain reflux Post-Op Diagnosis: gastritis. esophagitis Anesthesia Technique: MAC Primary Surgeon: Kevyn Cadena Anesthesia Provider: Teresa Gaytan Pathology: stomach and esophagus Complications: None Condition: Good Free Text/Narrative:: see dictation
--- NOTE | 2018-07-22 11:25 | OR ---
DATE OF OPERATION: 07/22/2018 SURGEON: Kevyn Cadena MD PROCEDURE PERFORMED: Esophagogastroduodenoscopy with cold forceps biopsy. PREOPERATIVE DIAGNOSES: 1. History of epigastric abdominal pain and reflux. 2. History of gastritis and reflux disease. POSTOPERATIVE DIAGNOSES: 1. Gastritis. 2. Esophagitis. INDICATIONS FOR PROCEDURE: This is a 23-year-old male who has had some persistent symptoms despite medical treatment for his gastroesophageal reflux disease and gastritis. He was offered and accepted an EGD. DESCRIPTION OF OPERATION: After an excellent IV sedation was administered, the bite block was inserted. The flexible endoscope was passed without difficulty down the patient's esophagus into the stomach. The stomach was insufflated. Scope was passed through the pylorus, second portion of the duodenum, and slowly withdrawn. The following findings were noted. The duodenum was unremarkable. Stomach demonstrated diffuse gastritis with very friable mucosa. Multiple biopsies were taken as well as photos. Esophagus and area of the GE junction have signs of marked erythema. GE junction measured approximately 39 cm. Photos and circumferential biopsies were taken. This area of inflammation was limited to the area around the esophagus. The remainder of the esophageal exam was unremarkable. The stomach was deflated and the scope was removed. Results by letter. /[id number] GALE/ROXY
[2018-07-22 15:55] VITALS: BP 105/64
== END 2018-07-22 12:10 | disposition home or self-care (01) ==
LOC: FB.SDS 09:04
PROVIDERS: ATTEND Surgery
DX: K29.30 Chronic superficial gastritis without bleeding (principal); K20.9 Esophagitis, unspecified; K21.9 Gastro-esophageal reflux disease without esophagitis; B96.81 Helicobacter pylori [H. pylori] as the cause of diseases classified elsewhere; F41.1 Generalized anxiety disorder; Z87.891 Personal history of nicotine dependence; Z79.899 Other long term (current) drug therapy
CPT/HCPCS: 88305; 88313; 88342; J2001; J2250; J2704; J7120

== ENCOUNTER 2018-12-10 07:44 | Emergency (ER) | payer BC, OTHER, SELFPAY ==
[2018-12-10] MEDS ORDERED: Ketorolac 60 MG/2 ML SDV IM ONE (08:09)
--- NOTE | 2018-12-10 08:13 | EDM.PDOC ---
ED HPI GENERAL MEDICAL PROBLEM - General Chief Complaint: Chest Pain Stated Complaint: CHEST PAIN, ARM PAIN, POSSIBLE ANXIETY Time Seen by Provider: 12/10/18 07:44 Source of Information: Reports: Patient History Limitations: Reports: No Limitations - History of Present Illness INITIAL COMMENTS - FREE TEXT/NARRATIVE: 23 y.o.w.m with a H/O H Pylori, came to the ED with ant chest wall pain. Pt was seen at his PMD's office for same and was diagnosed with anxiety. He did not take his anxiety pills today. Pt's pain is worse when taking a deep breath and when he applies pressure to his ant central and left anterior chest wall. No N/V /D no diaphoresis. Pt stopped drinking 6 months ago. No other acute med issues. BP 142/88 RR 18 Pulse ox 100% on RA Pulse 87 Temp 36.4 Onset Date: 12/10/18 Onset Time: 08:00 Duration: Day(s):, Intermittent Location: Reports: Chest Quality: Reports: Burning, Same as Previous Episode Severity: Mild Improves with: Reports: Rest Worsens with: Reports: Movement Context: Reports: Other (work for the [employer]) Associated Symptoms: Reports: Other (anxious with fingers tingling) Left upper chest Pain Score (Numeric/FACES): 10 - Related Data Allergies Allergy/AdvReac Type Severity Reaction Status Date / Time No Known Allergies Allergy Verified 12/10/18 07:58 Home Meds: Home Meds LORazepam 0.5 mg PO TID PRN 02/23/18 [History] Escitalopram [Lexapro] 10 mg PO DAILY 07/21/18 [History] Pantoprazole [ProTONIX] 40 mg PO DAILY 07/21/18 [History] Past Medical History HEENT History: Reports: None Cardiovascular History: Reports: None Respiratory History: Reports: None Gastrointestinal History: Reports: GERD, Other (See Below) Other Gastrointestinal History: CHRONIC DIARRHEA Genitourinary History: Reports: None Musculoskeletal History: Reports: None Neurological History: Reports: Headaches, Chronic Psychiatric History: Reports: Addiction, Anxiety, Panic Attack Other Psychiatric History: hx ETOH abuse & drug abuse (pot) Endocrine/Metabolic History: Reports: None, Obesity/BMI 30+ Hematologic History: Reports: None Immunologic History: Reports: None Oncologic (Cancer) History: Reports: None Dermatologic History: Reports: None - Infectious Disease History Infectious Disease History: Reports: None - Past Surgical History Head Surgeries/Procedures: Reports: None HEENT Surgical History: Reports: Oral Surgery Other HEENT Surgeries/Procedures: WISDOM TEETH EXTRACTION UNDER GENERAL GI Surgical History: Reports: Appendectomy, Cholecystectomy, Colonoscopy Social & Family History - Family History Family Medical History: Noncontributory GI: Reports: Other (See Below) Other GI Family History: AUNT WITH CROHN'S DISEASE - Caffeine Use Caffeine Use: Reports: None ED ROS GENERAL - Review of Systems Review Of Systems: See Below Constitutional: Reports: No Symptoms HEENT: Reports: No Symptoms Respiratory: Reports: No Symptoms Cardiovascular: Reports: No Symptoms Endocrine: Reports: No Symptoms GI/Abdominal: Reports: No Symptoms : Reports: No Symptoms Musculoskeletal: Reports: Muscle Pain (ant chest wall) Skin: Reports: No Symptoms Neurological: Reports: No Symptoms Psychiatric: Reports: Anxiety Hematologic/Lymphatic: Reports: No Symptoms Immunologic: Reports: No Symptoms ED EXAM, GENERAL - Physical Exam Exam: See Below Exam Limited By: No Limitations General Appearance: Alert, WD/WN, Mild Distress Eye Exam: Bilateral Eye: Normal Inspection Ears: Normal External Exam Ear Exam: Bilateral Ear: Auricle Normal Nose: Normal Inspection, Normal Mucosa, No Blood Throat/Mouth: Normal Inspection, Normal Lips, Normal Voice, No Airway Compromise Head: Atraumatic, Normocephalic Neck: Normal Inspection, Supple, Non-Tender, Full Range of Motion Respiratory/Chest: No Respiratory Distress, Lungs Clear, Normal Breath Sounds, Other (tender chest wall) Cardiovascular: Normal Peripheral Pulses, Regular Rate, Rhythm, No Edema, No Gallop, No JVD, No Murmur, No Rub Peripheral Pulses: 1+: Femoral (L) GI/Abdominal: Normal Bowel Sounds, Soft, No Organomegaly, Tender (mid lower abdomen) (Male) Exam: No Hernia Rectal (Males) Exam: Deferred Back Exam: Normal Inspection, Full Range of Motion Extremities: Normal Inspection, Normal Range of Motion, Non-Tender, Normal Capillary Refill Neurological: Alert, Oriented, CN II-XII Intact, Normal Cognition, Normal Gait Psychiatric: Anxious Skin Exam: Warm, Dry, Intact, Normal Color, No Rash Lymphatic: No Adenopathy EKG INTERPRETATION EKG Date: 12/10/18 Time: 07:50 Rhythm: NSR Rate (Beats/Min): 87 [place]: Normal P-Wave: Present QRS: Normal ST-T: Normal (t wave inversion lead III) QT: Normal Comparison: NA - No Prior EKG Course - Vital Signs Text/Narrative:: 23 y.o.w.m with a H/O H Pylori, came to the ED with ant chest wall pain. Pt was seen at his PMD's office for same and was diagnosed with anxiety. He did not take his anxiety pills today. Pt's pain is worse when taking a deep breath and when he applies pressure to his ant central and left anterior chest wall. No N/V /D no diaphoresis. Pt stopped drinking 6 months ago. No other acute med issues. BP 142/88 RR 18 Pulse ox 100% on RA Pulse 87 Temp 36.4 PE: WNWD W M with finger tingling on both side and pain left arm. Pt is physically active works for the [employer]. Imaging: Not indicated Labs: CBC, BMP UA nd UDS were neg. CK was 385 Troponin was 0.017 Impression: Atypical chest pain Tx: Toradol Reexam: improved, pt was texting while waiting Plan: D/C with instructions 9.20 am Consultation: Dr. Barger, Digital Forensic Examiner, [facility]: No intervention needed, would recommended EST as on an out patient Last Recorded V/S: Last Vital Signs Temp 36.4 C 12/10/18 07:45 Pulse 63 12/10/18 10:00 Resp 16 12/10/18 10:00 BP 131/75 12/10/18 10:00 Pulse Ox 100 12/10/18 10:00 - Orders/Labs/Meds Orders: Active Orders 24 hr Category Date Time Status EKG 12 Lead [EK] Routine Ther 12/10/18 08:58 Ordered EKG 12 Lead [EK] Stat Ther 12/10/18 08:13 Ordered Labs: Laboratory Tests 12/10/18 12/10/18 12/10/18 Range/Units 08:15 08:15 08:17 WBC 8.7 (4.5-12.0) X10-3/uL RBC 5.53 (4.30-5.75) x10(6)uL Hgb 16.2 (13.5-17.8) g/dL Hct 48.0 (30.0-51.3) % MCV 86.8 (80-96) fL MCH 29.3 (27.7-33.6) pg MCHC 33.7 (32.2-35.4) g/dL RDW 12.2 (11.5-15.5) % Plt Count 226 (125-369) X10(3)uL MPV 8.3 (7.4-10.4) fL Neut % (Auto) 58.5 (46-82) % Lymph % (Auto) 33.0 (13-37) % [place] % (Auto) 6.7 (4-12) % Eos % (Auto) 1 (1.0-5.0) % Baso % (Auto) 1 (0-2) % Neut # (Auto) 5.1 (1.6-8.3) # Lymph # (Auto) 2.9 (0.6-5.0) # [place] # (Auto) 0.6 (0.0-1.3) # Eos # (Auto) 0.1 (0.0-0.8) # Baso # (Auto) 0.0 (0.0-0.2) # Sodium (135-145) mmol/L Potassium (3.5-5.3) mmol/L Chloride (100-110) mmol/L Carbon Dioxide (21-32) mmol/L BUN (7-18) mg/dL Creatinine (0.70-1.30) mg/dL Est Cr Clr Drug Dosing mL/min Estimated GFR (MDRD) (>60) BUN/Creatinine Ratio (9-20) Glucose (80-116) mg/dL Calcium (8.6-10.2) mg/dL Magnesium (1.8-2.5) mg/dL Creatine Kinase (60-160) IU/L Troponin I (<0.017-0.056) ng/mL Urine Color Yellow (YELLOW) Urine Appearance Clear (CLEAR) Urine pH 6.5 (5.0-6.5) Ur Specific [place] 1.015 (1.010-1.025) Urine Protein Negative (NEGATIVE) mg/dL Urine Glucose (UA) Normal (NORMAL) mg/dL Urine Ketones Negative (NEGATIVE) mg/dL Urine Occult Blood Negative (NEGATIVE) Urine Nitrite Negative (NEGATIVE) Urine Bilirubin Negative (NEGATIVE) Urine Urobilinogen Normal (NEGATIVE) mg/dL Ur Leukocyte Esterase Negative (NEGATIVE) Urine RBC Not seen (0-5) Urine WBC 0-5 (0-5) Ur Squamous Epith Cells Rare (NS,R,O) Urine Bacteria Rare H (NS) Urine Opiates Screen Negative (NEGATIVE) Ur Oxycodone Screen Negative (NEGATIVE) Ur Propoxyphene Screen Negative (NEGATIVE) Ur Barbituates Screen Negative (NEGATIVE) Ur Tricyclics Screen Negative (NEGATIVE) Ur Phencyclidine Scrn Negative (NEGATIVE) Ur Amphetamine Screen Negative (NEGATIVE) Urine MDMA Screen Negative (NEGATIVE) U Benzodiazepines Scrn Negative (NEGATIVE) U Cocaine Metab Screen Negative (NEGATIVE) U Marijuana (THC) Screen Negative (NEGATIVE) 12/10/18 12/10/18 12/10/18 Range/Units 08:17 08:17 08:17 WBC (4.5-12.0) X10-3/uL RBC (4.30-5.75) x10(6)uL Hgb (13.5-17.8) g/dL Hct (30.0-51.3) % MCV (80-96) fL MCH (27.7-33.6) pg MCHC (32.2-35.4) g/dL RDW (11.5-15.5) % Plt Count (125-369) X10(3)uL MPV (7.4-10.4) fL Neut % (Auto) (46-82) % Lymph % (Auto) (13-37) % [place] % (Auto) (4-12) % Eos % (Auto) (1.0-5.0) % Baso % (Auto) (0-2) % Neut # (Auto) (1.6-8.3) # Lymph # (Auto) (0.6-5.0) # [place] # (Auto) (0.0-1.3) # Eos # (Auto) (0.0-0.8) # Baso # (Auto) (0.0-0.2) # Sodium 141 (135-145) mmol/L Potassium 4.3 (3.5-5.3) mmol/L Chloride 105 (100-110) mmol/L Carbon Dioxide 28 (21-32) mmol/L BUN 14 (7-18) mg/dL Creatinine 1.1 (0.70-1.30) mg/dL Est Cr Clr Drug Dosing 102.66 mL/min Estimated GFR (MDRD) > 60 (>60) BUN/Creatinine Ratio 12.7 (9-20) Glucose 101 (80-116) mg/dL Calcium 9.2 (8.6-10.2) mg/dL Magnesium 1.9 (1.8-2.5) mg/dL Creatine Kinase 391 H* (60-160) IU/L Troponin I < 0.017 L (<0.017-0.056) ng/mL Urine Color (YELLOW) Urine Appearance (CLEAR) Urine pH (5.0-6.5) Ur Specific [place] (1.010-1.025) Urine Protein (NEGATIVE) mg/dL Urine Glucose (UA) (NORMAL) mg/dL Urine Ketones (NEGATIVE) mg/dL Urine Occult Blood (NEGATIVE) Urine Nitrite (NEGATIVE) Urine Bilirubin (NEGATIVE) Urine Urobilinogen (NEGATIVE) mg/dL Ur Leukocyte Esterase (NEGATIVE) Urine RBC (0-5) Urine WBC (0-5) Ur Squamous Epith Cells (NS,R,O) Urine Bacteria (NS) Urine Opiates Screen (NEGATIVE) Ur Oxycodone Screen (NEGATIVE) Ur Propoxyphene Screen (NEGATIVE) Ur Barbituates Screen (NEGATIVE) Ur Tricyclics Screen (NEGATIVE) Ur Phencyclidine Scrn (NEGATIVE) Ur Amphetamine Screen (NEGATIVE) Urine MDMA Screen (NEGATIVE) U Benzodiazepines Scrn (NEGATIVE) U Cocaine Metab Screen (NEGATIVE) U Marijuana (THC) Screen (NEGATIVE) Meds: Medications Discontinued Medications Generic Name Dose Route Start Last Admin Trade Name Freq PRN Reason Stop Dose Admin Ketorolac Tromethamine 60 mg 12/10/18 08:09 12/10/18 08:13 Toradol IM 12/10/18 08:10 60 mg ONETIME ONE Administration Departure - Departure Time of Disposition: 09:55 Disposition: Home, Self-Care 01 Condition: Good Clinical Impression: Atypical chest pain Instructions: Nonspecific Chest Pain, [id number] Referrals: Hyacinth Waters [facility]WILL AMBASSADOR [Primary Care Provider] - Forms: ED Department Discharge, ED Return to Work/School Form Additional Instructions: Please f/u with your PMD to be scheduled for a Exercise stress test as on out patient. Cont. your meds, please come back if tour symptoms get worse acutely - My Orders Last 24 Hours: My Active Orders 12/10/18 08:13 EKG 12 Lead [EK] Stat 12/10/18 08:58 EKG 12 Lead [EK] Routine - Assessment/Plan Last 24 Hours: My Active Orders 12/10/18 08:13 EKG 12 Lead [EK] Stat 12/10/18 08:58 EKG 12 Lead [EK] Routine
[2018-12-10 10:53] VITALS: BP 131/75
== END 2018-12-10 10:16 | disposition home or self-care (01) ==
LOC: FB.ED 07:44
DX: R07.89 Other chest pain (principal); K21.9 Gastro-esophageal reflux disease without esophagitis; F41.9 Anxiety disorder, unspecified; Z79.899 Other long term (current) drug therapy
CPT/HCPCS: 36415; 80048; 80305; 81001; 82550; 83735; 84484; 85025; 93005; 96372; 99285; J1885

== ENCOUNTER 2019-08-02 02:01 | Emergency (ER) | payer BC ==
[2019-08-02] MEDS ORDERED: Sucralfate Suspension 1 GM/10 ML Cup PO ONE (03:54)
[2019-08-02] MEDS ORDERED: Alum Hydroxide/Mag Hydroxide 15 ML, Lidocaine 2% 15 ML PO ONE ×2 (03:55)
--- NOTE | 2019-08-02 04:20 | EDM.PDOC ---
ED HPI GENERAL MEDICAL PROBLEM - General Chief Complaint: Abdominal Pain Stated Complaint: ABDOMINAL PAIN Time Seen by Provider: 08/02/19 03:10 Source of Information: Reports: Patient History Limitations: Reports: No Limitations - History of Present Illness INITIAL COMMENTS - FREE TEXT/NARRATIVE: sudden onset of abdominal pain this night ans gradually getting worse pain in the left flank and epigastrium he is on triple antibiotics for h pylori Onset: Today Duration: Hour(s):, Getting Worse, Waxing/Waning Quality: Reports: Ache, Burning Severity: Moderate Improves with: Reports: Eating Worsens with: Reports: Movement Context: Reports: Activity Associated Symptoms: Reports: Headaches, Malaise, Nausea/Vomiting Lower mid-abdomen Pain Score (Numeric/FACES): 10 - Related Data Allergies Allergy/AdvReac Type Severity Reaction Status Date / Time No Known Allergies Allergy Verified 08/02/19 02:16 Home Meds: Home Meds LORazepam 0.5 mg PO TID PRN 02/23/18 [History] Pantoprazole [ProTONIX] 40 mg PO DAILY 07/21/18 [History] Amoxicillin 500 mg PO BID 08/02/19 [History] Clarithromycin 500 mg BID 08/02/19 [History] Past Medical History HEENT History: Reports: None Cardiovascular History: Reports: None Respiratory History: Reports: None Gastrointestinal History: Reports: GERD, PUD Other Gastrointestinal History: CHRONIC DIARRHEA Genitourinary History: Reports: None Musculoskeletal History: Reports: Fracture Other Musculoskeletal History: hx fx L arm Neurological History: Reports: Headaches, Chronic Psychiatric History: Reports: Addiction, Anxiety, Panic Attack Other Psychiatric History: hx ETOH abuse & drug abuse (pot) Endocrine/Metabolic History: Reports: Obesity/BMI 30+ Hematologic History: Reports: None Immunologic History: Reports: None Oncologic (Cancer) History: Reports: None Dermatologic History: Reports: None - Infectious Disease History Infectious Disease History: Reports: None - Past Surgical History Head Surgeries/Procedures: Reports: None HEENT Surgical History: Reports: Oral Surgery Other HEENT Surgeries/Procedures: WISDOM TEETH EXTRACTION UNDER GENERAL GI Surgical History: Reports: Appendectomy, Cholecystectomy, Colonoscopy, EGD Social & Family History - Family History Family Medical History: Noncontributory GI: Reports: Other (See Below) Other GI Family History: AUNT WITH CROHN'S DISEASE - Tobacco Use Smoking Status *Q: Former Smoker Years of Tobacco use: 2 Used Tobacco, but Quit: Yes Month/Year Tobacco Last Used: 2019 - Caffeine Use Caffeine Use: Reports: Soda - Recreational Drug Use Recreational Drug Use: Yes Recreational Drug Type: Reports: Marijuana/Hashish Other Recreational Drug Type: has not used for 1yr ED ROS GENERAL - Review of Systems Review Of Systems: See Below Constitutional: Reports: Malaise, Weakness, Fatigue HEENT: Reports: No Symptoms Respiratory: Reports: No Symptoms Cardiovascular: Reports: No Symptoms Endocrine: Reports: No Symptoms GI/Abdominal: Reports: No Symptoms, Abdominal Pain, Decreased Appetite, Nausea. Denies: Vomiting : Reports: No Symptoms Musculoskeletal: Reports: No Symptoms Skin: Reports: No Symptoms ED EXAM, GI/ABD - Physical Exam Exam: See Below Exam Limited By: No Limitations General Appearance: Alert, WD/WN, No Apparent Distress Eyes: Bilateral: Abnormal EOM Ears: Normal External Exam Nose: Normal Inspection Throat/Mouth: Normal Oropharynx Head: Atraumatic, Normocephalic Neck: Supple, Non-Tender, Full Range of Motion Respiratory/Chest: No Respiratory Distress, Lungs Clear Cardiovascular: Regular Rate, Rhythm GI/Abdominal Exam: Soft, Distended, Guarding, Rigid Neurological: Alert, Oriented Course - Vital Signs Last Recorded V/S: Last Vital Signs Temp 36.5 C 08/02/19 02:14 Pulse 74 08/02/19 02:14 Resp 18 08/02/19 02:14 BP 118/71 08/02/19 02:14 Pulse Ox 99 08/02/19 02:14 - Orders/Labs/Meds Labs: Laboratory Tests 08/02/19 Range/Units 02:36 Urine Color Yellow (YELLOW) Urine Appearance Clear (CLEAR) Urine pH 6.0 (5.0-6.5) Ur Specific [place] 1.015 (1.010-1.025) Urine Protein Negative (NEGATIVE) mg/dL Urine Glucose (UA) Normal (NORMAL) mg/dL Urine Ketones Negative (NEGATIVE) mg/dL Urine Occult Blood Negative (NEGATIVE) Urine Nitrite Negative (NEGATIVE) Urine Bilirubin Negative (NEGATIVE) Urine Urobilinogen Normal (NEGATIVE) mg/dL Ur Leukocyte Esterase Negative (NEGATIVE) Urine RBC 0-5 (0-5) Urine WBC 0-5 (0-5) Ur Squamous Epith Cells Rare (NS,R,O) Urine Bacteria Occasional H (NS) Meds: Medications Discontinued Medications Generic Name Dose Route Start Last Admin Trade Name Fidel PRN Reason Stop Dose Admin Al Hydroxide/Mg Hydroxide 15 0 ml 08/02/19 03:55 08/02/19 04:13 ml/ Lidocaine HCl 15 ml PO 08/02/19 03:56 30 ml ONETIME ONE Administration Sucralfate 1 gm 08/02/19 03:54 08/02/19 04:12 Carafate PO 08/02/19 03:55 1 gm ONETIME ONE Administration Departure - Departure Time of Disposition: 04:25 Disposition: Home, Self-Care 01 Condition: Fair Clinical Impression: Gastritis and duodenitis, H. pylori duodenitis, Gastritis - Discharge Information *PRESCRIPTION DRUG MONITORING PROGRAM REVIEWED*: Not Applicable *COPY OF PRESCRIPTION DRUG MONITORING REPORT IN PATIENT FRANCISCO JAVIER: Not Applicable Instructions: Gastritis, Adult, [id number], Helicobacter Pylori Infection, Peptic Ulcer Eating Plan Referrals: PCP,None [Primary Care Provider] - Additional Instructions: Complete medications as prescribed Increase fluid intake FU with you PCP in 1 week Sepsis Event Note - Evaluation Sepsis Screening Result: No Definite Risk - Focused Exam Vital Signs: Vital Signs Temp Pulse Resp BP Pulse Ox 08/02/19 02:14 36.5 C 74 18 118/71 99 Date Exam was Performed: 08/02/19 Time Exam was Performed: 04:14
[2019-08-02 04:41] VITALS: BP 122/78; PULSE 61
== END 2019-08-02 04:37 | disposition home or self-care (01) ==
LOC: FB.ED 02:01
DX: K29.70 Gastritis, unspecified, without bleeding (principal); K29.80 Duodenitis without bleeding; B96.81 Helicobacter pylori [H. pylori] as the cause of diseases classified elsewhere; K21.9 Gastro-esophageal reflux disease without esophagitis; K27.9 Peptic ulcer, site unspecified, unspecified as acute or chronic, without hemorrhage or perforation; F41.9 Anxiety disorder, unspecified; E66.9 Obesity, unspecified; Z68.32 Body mass index [BMI] 32.0-32.9, adult; Z90.49 Acquired absence of other specified parts of digestive tract; Z90.89 Acquired absence of other organs; Z87.891 Personal history of nicotine dependence; Z79.899 Other long term (current) drug therapy
CPT/HCPCS: 81001; 99284; A9270

== ENCOUNTER 2020-08-04 22:49 | Emergency (ER) | payer OTHER ==
[2020-08-04] MEDS ORDERED: traMADol 50 MG Tab PO ONE (22:50)
--- NOTE | 2020-08-04 23:12 | EDM.PDOC ---
ED HPI GENERAL MEDICAL PROBLEM - General Chief Complaint: Abdominal Pain Stated Complaint: STOMACH PAIN Time Seen by Provider: 08/04/20 23:05 Source of Information: Reports: Patient History Limitations: Reports: No Limitations - History of Present Illness INITIAL COMMENTS - FREE TEXT/NARRATIVE: 25-year-old male who states about 2 days ago he developed soreness in his right lower abdomen that he felt was just multiple pain related to working out which he has just started doing easily. However, the pain has progressively worsened with time and now he has soreness all over the lower abdomen but more so in the right lower abdomen. It does not radiate. It does have some sharp spikes and he rates the pain currently as a 10/10. It is worse with palpation and with movement. It is also worse when he stretches himself out. He reports normal bowel movements with one normal bowel movement just prior to coming in. He denies any dysuria or hematuria. He does report that he has been eating and drinking normally and states that he had pizza tonight and had no problems eating. Eating and drinking does not seem to make the pain better or worse. His pain does seem to be somewhat better when he is at rest and sitting. He has had no trauma to the area that he knows. Just prior to coming in, the patient developed nausea and has had vomiting 1. There has been no fevers or chills. No cough. No nasal congestion. No sore throat. No back pain. There are no other associated signs or symptoms. There are no other modifying factors. 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 (see below) (Nothing.) Right Lower Abdomen Pain Score (Numeric/FACES): 10 - Related Data Allergies Allergy/AdvReac Type Severity Reaction Status Date / Time No Known Allergies Allergy Verified 08/04/20 23:11 Home Meds: Home Meds L.acidoph,Paracasei, B.lactis [Probiotic] 1 each PO DAILY 08/04/20 [History] Omeprazole 40 mg PO DAILY 08/04/20 [History] traMADol [Ultram] 50 mg PO Q6H PRN #8 tab 08/05/20 [Rx] Past Medical History Gastrointestinal History: Reports: GERD, PUD Other Gastrointestinal History: CHRONIC DIARRHEA Musculoskeletal History: Reports: Fracture Other Musculoskeletal History: hx fx L arm Neurological History: Reports: Headaches, Chronic Psychiatric History: Reports: Addiction, Anxiety, Panic Attack Other Psychiatric History: hx ETOH abuse & drug abuse (pot) Endocrine/Metabolic History: Reports: Obesity/BMI 30+ - Infectious Disease History Infectious Disease History: Reports: None - Past Surgical History HEENT Surgical History: Reports: Oral Surgery Other HEENT Surgeries/Procedures: WISDOM TEETH EXTRACTION UNDER GENERAL GI Surgical History: Reports: Appendectomy, Cholecystectomy, Colonoscopy, EGD Social & Family History - Family History GI: Reports: Other (See Below) Other GI Family History: AUNT WITH CROHN'S DISEASE - Tobacco Use Tobacco Use Status *Q: Former Tobacco User (Quit smoking about 7-8 months ago.) - Caffeine Use Caffeine Use: Reports: Soda - Alcohol Use Alcohol Use History: Yes Alcohol Use Frequency: Weekly (Only on the weekends. He states he may have a 12 pack of beer over a weekend.) - Living Situation & Occupation Occupation: Employed (Works for the [employer].) ED ROS GENERAL - Review of Systems Review Of Systems: See Below Constitutional: Reports: No Symptoms HEENT: Reports: Other (Dry mouth.) Respiratory: Reports: No Symptoms Cardiovascular: Reports: No Symptoms Endocrine: Reports: No Symptoms GI/Abdominal: Reports: Abdominal Pain, Nausea, Vomiting (x1) : Reports: No Symptoms, Other (No testicular pain.). Denies: Flank Pain Musculoskeletal: Reports: No Symptoms Skin: Reports: No Symptoms Neurological: Reports: No Symptoms Psychiatric: Reports: Anxiety Hematologic/Lymphatic: Reports: No Symptoms Immunologic: Reports: No Symptoms ED EXAM, GI/ABD - Physical Exam Exam: See Below Exam Limited By: No Limitations General Appearance: Alert, WD/WN, Moderate Distress Eyes: Bilateral: Normal Appearance, EOMI Ears: Normal External Exam, Hearing Grossly Normal Nose: Normal Inspection, Normal Mucosa, No Blood Throat/Mouth: Normal Inspection, Normal Lips, Normal Oropharynx, Normal Voice, No Airway Compromise Head: Atraumatic, Normocephalic Neck: Normal Inspection, Supple, Non-Tender, Full Range of Motion Respiratory/Chest: No Respiratory Distress, Lungs Clear, Normal Breath Sounds, No Accessory Muscle Use, Chest Non-Tender Cardiovascular: Normal Peripheral Pulses, Regular Rate, Rhythm, No Murmur GI/Abdominal Exam: Soft, No Distention, No Mass, Guarding, Tender (In lower abdomen with greater tenderness over the right lower abdomen at midline.), Abnormal Bowel Sounds (Bowel sounds are somewhat diminished.) (Male) Exam: Other (No groin tenderness. No groin masses.) Back Exam: Normal Inspection, Full Range of Motion Extremities: Normal Inspection, Normal Range of Motion, Non-Tender, Normal Capillary Refill, No Pedal Edema Neurological: Alert, Oriented, CN II-XII Intact, Normal Cognition, No Motor/Sensory Deficits Psychiatric: Anxious Skin Exam: Warm, Dry, Intact, Normal Color, No Rash Course - Vital Signs Last Recorded V/S: Last Vital Signs Temp 36.5 C 08/05/20 00:20 Pulse 78 08/05/20 00:20 Resp 16 08/05/20 00:20 BP 139/88 08/05/20 00:20 Pulse Ox 100 08/05/20 00:20 - Orders/Labs/Meds Orders: Active Orders 24 hr Category Date Time Status Abdomen Pelvis w Cont [CT] Stat Exams 08/04/20 23:42 Ordered Sodium Chloride 0.9% [Normal Saline] 1,000 ml Med 08/04/20 23:30 Active IV ASDIRECTED Sodium Chloride 0.9% [Saline Flush] Med 08/04/20 23:19 Active 10 ml FLUSH ASDIRECTED PRN Peripheral IV Insertion Adult [OM.PC] Routine Oth 08/04/20 23:19 Ordered Medication Orders Sodium Chloride (Normal Saline) 1,000 mls @ 150 mls/hr IV ASDIRECTED ELADIO Last Admin: 08/05/20 00:36 Dose: 150 mls/hr Documented by: RENAN Sodium Chloride (Saline Flush) 10 ml FLUSH ASDIRECTED PRN PRN Reason: Keep Vein Open Last Admin: 08/04/20 23:31 Dose: 10 ml Documented by: RENAN Labs: Laboratory Tests 08/04/20 08/04/20 08/04/20 Range/Units 23:00 23:30 23:30 WBC 9.5 (3.2-10.1) x10-3/uL RBC 5.07 (3.90-5.90) x10(6)uL Hgb 14.9 (12.9-17.7) g/dL Hct 44.9 (38.3-50.1) % MCV 88.4 (80.8-98.7) fL MCH 29.4 (27.0-33.3) pg MCHC 33.2 (28.7-35.3) g/dL RDW 13.1 (12.4-15.0) % Plt Count 204 (117-477) x10(3)uL MPV 8.2 (6.7-11.0) fL Neut % (Auto) 48.1 (40.3-71.8) % Lymph % (Auto) 40.9 (15.8-45.3) % Lassen % (Auto) 8.9 (5.5-15.2) % Eos % (Auto) 1.8 (0.1-6.8) % Baso % (Auto) 0.3 (0.3-3.8) % Neut # (Auto) 4.6 (1.7-6.9) x10-3/uL Lymph # (Auto) 3.9 (0.5-4.5) x10-3/uL Lassen # (Auto) 0.8 (0.0-1.2) x10-3/uL Eos # (Auto) 0.2 (0.0-0.6) x10-3/uL Baso # (Auto) 0.0 (0.0-0.3) x10-3/uL Sodium 144 (135-145) mmol/L Potassium 3.5 (3.5-5.3) mmol/L Chloride 103 (100-110) mmol/L Carbon Dioxide 28 (21-32) mmol/L BUN 19 H (7-18) mg/dL Creatinine 1.1 (0.70-1.30) mg/dL Est Cr Clr Drug Dosing 94.31 mL/min Estimated GFR (MDRD) > 60 (>60) BUN/Creatinine Ratio 17.3 (9-20) Glucose 128 H (80-116) mg/dL Calcium 9.2 (8.6-10.2) mg/dL Magnesium 1.8 (1.8-2.5) mg/dL Total Bilirubin 0.5 (0.1-1.3) mg/dL AST 46 H D (5-25) IU/L ALT 74 H D (12-36) U/L Alkaline Phosphatase 120 H (56-112) IU/L C-Reactive Protein (0.5-0.9) mg/dL Total Protein 7.4 (6.0-8.0) g/dL Albumin 4.3 (3.5-5.2) g/dL Globulin 3.1 g/dL Albumin/Globulin Ratio 1.4 Lipase (73-393) U/L Urine Color Yellow (YELLOW) Urine Appearance Clear (CLEAR) Urine pH 5.0 (5.0-6.5) Ur Specific Delta 1.025 (1.010-1.025) Urine Protein Negative (NEGATIVE) mg/dL Urine Glucose (UA) Normal (NORMAL) mg/dL Urine Ketones Negative (NEGATIVE) mg/dL Urine Occult Blood Negative (NEGATIVE) Urine Nitrite Negative (NEGATIVE) Urine Bilirubin Negative (NEGATIVE) Urine Urobilinogen Normal (NEGATIVE) mg/dL Ur Leukocyte Esterase Negative (NEGATIVE) Urine RBC 0-5 (0-5) Urine WBC 0-5 (0-5) Ur Squamous Epith Cells Rare (NS,R,O) Urine Bacteria Occasional H (NS) 08/04/20 Range/Units 23:30 WBC (3.2-10.1) x10-3/uL RBC (3.90-5.90) x10(6)uL Hgb (12.9-17.7) g/dL Hct (38.3-50.1) % MCV (80.8-98.7) fL MCH (27.0-33.3) pg MCHC (28.7-35.3) g/dL RDW (12.4-15.0) % Plt Count (117-477) x10(3)uL MPV (6.7-11.0) fL Neut % (Auto) (40.3-71.8) % Lymph % (Auto) (15.8-45.3) % Lassen % (Auto) (5.5-15.2) % Eos % (Auto) (0.1-6.8) % Baso % (Auto) (0.3-3.8) % Neut # (Auto) (1.7-6.9) x10-3/uL Lymph # (Auto) (0.5-4.5) x10-3/uL Lassen # (Auto) (0.0-1.2) x10-3/uL Eos # (Auto) (0.0-0.6) x10-3/uL Baso # (Auto) (0.0-0.3) x10-3/uL Sodium (135-145) mmol/L Potassium (3.5-5.3) mmol/L Chloride (100-110) mmol/L Carbon Dioxide (21-32) mmol/L BUN (7-18) mg/dL Creatinine (0.70-1.30) mg/dL Est Cr Clr Drug Dosing mL/min Estimated GFR (MDRD) (>60) BUN/Creatinine Ratio (9-20) Glucose (80-116) mg/dL Calcium (8.6-10.2) mg/dL Magnesium (1.8-2.5) mg/dL Total Bilirubin (0.1-1.3) mg/dL AST (5-25) IU/L ALT (12-36) U/L Alkaline Phosphatase (56-112) IU/L C-Reactive Protein 1.0 H (0.5-0.9) mg/dL Total Protein (6.0-8.0) g/dL Albumin (3.5-5.2) g/dL Globulin g/dL Albumin/Globulin Ratio Lipase 143 (73-393) U/L Urine Color (YELLOW) Urine Appearance (CLEAR) Urine pH (5.0-6.5) Ur Specific Delta (1.010-1.025) Urine Protein (NEGATIVE) mg/dL Urine Glucose (UA) (NORMAL) mg/dL Urine Ketones (NEGATIVE) mg/dL Urine Occult Blood (NEGATIVE) Urine Nitrite (NEGATIVE) Urine Bilirubin (NEGATIVE) Urine Urobilinogen (NEGATIVE) mg/dL Ur Leukocyte Esterase (NEGATIVE) Urine RBC (0-5) Urine WBC (0-5) Ur Squamous Epith Cells (NS,R,O) Urine Bacteria (NS) Meds: Medications Generic Name Dose Route Start Last Admin Trade Name Freq PRN Reason Stop Dose Admin Sodium Chloride 1,000 mls @ 150 mls/hr 08/04/20 23:30 08/05/20 00:36 Normal Saline IV 150 mls/hr ASDIRECTED ELADIO Administration Sodium Chloride 10 ml 08/04/20 23:19 08/04/20 23:31 Saline Flush FLUSH 10 ml ASDIRECTED PRN Administration Keep Vein Open Discontinued Medications Generic Name Dose Route Start Last Admin Trade Name Coryq PRN Reason Stop Dose Admin Hydromorphone HCl 1 mg 08/04/20 23:20 08/04/20 23:26 Dilaudid IVPUSH 08/04/20 23:21 1 mg ONETIME ONE Administration Sodium Chloride 1,000 mls @ 999 mls/hr 08/04/20 23:20 08/04/20 23:32 Normal Saline IV 08/05/20 00:20 999 mls/hr .BOLUS ONE Administration Iopamidol 100 ml 08/04/20 23:55 08/05/20 00:14 Isovue-370 (76%) IV 08/04/20 23:56 100 ml . DIRECTED ONE Administration Ondansetron HCl 4 mg 08/04/20 23:20 08/04/20 23:25 Zofran IVPUSH 08/04/20 23:21 4 mg ONETIME ONE Administration - Radiology Interpretation Free Text/Narrative:: CT scan of abdomen and pelvis shows no acute abnormality identified. No cause for the patient's symptoms is demonstrated. Status post cholecystectomy and appendectomy. This was per the [facility] radiologist. - Re-Assessments/Exams Free Text/Narrative Re-Assessment/Exam: 08/04/20 23:42: Patient does feel improved after the IV Dilaudid. His urinalysis was unremarkable. I will order a CT scan of his abdomen and pelvis with IV contrast. We will continue IV fluid hydration with normal saline and continue with the patient at NPO status. 08/05/20 01:00: Patient's blood tests were reassuring. He did have some LFT abnormalities that he has had in the past. His pain is still much improved and down to a 2-3/10. The CT scan of his abdomen and pelvis demonstrated no cause for his symptoms. Specifically, it ruled out hernia, diverticulitis, colitis, obstruction or any other inflammatory process. There was also no evidence of kidney stone. I did reexamine the patient at this point and he still has pain in his right lower quadrant at the midline. There are no groin lumps or masses and I did examine his genitourinary area and there were no hernias. The testes were both descended and there was no testicular tenderness or erythema or swelling. According to the patient, he just started working out and he had been doing some squats and activities that would use his abdominal wall musculature. This could be musculoskeletal pain. He is stable for discharge at this point with nothing pointing toward any acute intervention necessary at this time. I will give the patient a take home pack tramadol and another prescription for a small additional number of tramadol. He can take ibuprofen and Tylenol for his pain as well. He is to avoid any strenuous physical activity or exercise and rest for the next 3 days. Precautions and reasons for return to the emergency department were discussed with the patient while he was in the emergency department were detailed to the patient's discharge instructions. The patient is comfortable to plan to discharge. Departure - Departure Time of Disposition: 01:15 Disposition: Home, Self-Care Condition: Good Clinical Impression: Abdominal pain of unknown etiology - Discharge Information Prescriptions: traMADol [Ultram] 50 mg PO Q6H PRN #8 tab PRN Reason: Moderate to severe pain Instructions: Abdominal Pain, Adult, [id number], Pain Medicine Instructions, [id number] Referrals: Hyacinth Watres INSURANCE ANALYST [Primary Care Provider] - Forms: ED Department Discharge Additional Instructions: Your blood tests were normal except for some elevated liver enzymes. As we discussed, this can have many causes and you will need to follow-up with your primary provider about these liver tests. I do not think that it has anything to do with the pain that you presented with today. The urine test was normal. The CT scan of your abdomen and pelvis did not show the cause of your abdominal pain. It did not appear to be anything of a serious nature or anything that would require any intervention at this point. It could be related to your recent exercising. You should rest. You should avoid any strenuous activity or exercise for the next 3 days at least. Increase your fluid intake. You can take ibuprofen and Tylenol as needed for pain. Medication as prescribed for more severe pain (tramadol). Follow-up with your primary provider as above. Back to the emergency department for marked increase in pain, fever, unrelenting vomiting or any other concerning sign or symptom. Sepsis Event Note (ED) - Evaluation Sepsis Screening Result: No Definite Risk - Focused Exam Vital Signs: Vital Signs Temp Pulse Resp BP Pulse Ox 08/05/20 00:20 36.5 C 78 16 139/88 100 08/04/20 23:07 36.5 C 81 16 152/98 H 100 - My Orders Last 24 Hours: My Active Orders 08/04/20 23:19 Sodium Chloride 0.9% [Saline Flush] 10 ml FLUSH ASDIRECTED PRN Peripheral IV Insertion Adult [OM.PC] Routine 08/04/20 23:30 Sodium Chloride 0.9% [Normal Saline] 1,000 ml IV ASDIRECTED 08/04/20 23:42 Abdomen Pelvis w Cont [CT] Stat - Assessment/Plan Last 24 Hours: My Active Orders 08/04/20 23:19 Sodium Chloride 0.9% [Saline Flush] 10 ml FLUSH ASDIRECTED PRN Peripheral IV Insertion Adult [OM.PC] Routine 08/04/20 23:30 Sodium Chloride 0.9% [Normal Saline] 1,000 ml IV ASDIRECTED 08/04/20 23:42 Abdomen Pelvis w Cont [CT] Stat
[2020-08-04] MEDS ORDERED: Sodium Chloride 0.9% 10 ML Syringe FLUSH PRN (23:19)
[2020-08-04] MEDS ORDERED: HYDROmorphone 2 MG/ML SDV IVPUSH ONE (23:20)
[2020-08-04] MEDS ORDERED: Sodium Chloride 0.9% 1,000 ML IV ONE (23:20)
[2020-08-04] MEDS ORDERED: Ondansetron 4 MG/2 ML SDV IVPUSH ONE (23:20)
[2020-08-04] MEDS ORDERED: Sodium Chloride 0.9% 1,000 ML IV SCH (23:30)
[2020-08-04] MEDS ORDERED: Iopamidol 755 Mg/ML 100 ML Bottle IV ONE (23:55)
[2020-08-05 01:15] VITALS: BP 138/89; PULSE 66
== END 2020-08-05 01:23 | disposition home or self-care (01) ==
LOC: FB.ED 22:49
DX: R10.31 Right lower quadrant pain (principal); K21.9 Gastro-esophageal reflux disease without esophagitis; E66.9 Obesity, unspecified; Z87.891 Personal history of nicotine dependence; Z68.35 Body mass index [BMI] 35.0-35.9, adult; Z79.899 Other long term (current) drug therapy
CPT/HCPCS: 36415; 74177; 80053; 81001; 83690; 83735; 85025; 86140; 96374; 96375; 99284; A9270; J1170; J2405; J7030; Q9967

== ENCOUNTER 2021-04-14 02:26 | Emergency (ER) | payer OTHER ==
--- NOTE | 2021-04-14 02:45 | EDM.PDOC ---
ED HPI GENERAL MEDICAL PROBLEM - General Stated Complaint: COLD SYMPTOMS Time Seen by Provider: 04/14/21 02:40 Source of Information: Reports: Patient History Limitations: Reports: No Limitations - History of Present Illness INITIAL COMMENTS - FREE TEXT/NARRATIVE: 26-year-old male who reports beginning on Friday night and morning he developed sore throat, nasal congestion and cough with generalized malaise and fever. She has been having fevers up to 101.8F. He has felt weak and dizzy with this particularly when he stands and walks around. He went to work yesterday and was feeling bad with sore throat and any aches and had to leave to go home Friday morning he developed nausea and has had vomiting 3 through the day and also diarrhea which he reports he has had 20+ episodes of diarrhea today. There has been no blood in his stool but he does report that it is brown and watery. He reports that his sore throat as an 8-9/10. In beginning at about 9 PM last night he developed pain in his lower abdomen which is more on the left side than the right side. He rates that pain as a 9/10. He tried eat supper last night but only had about 3 or 4 bites and could not eat any more. He has been trying to increase his fluid intake but he has had decreased urine output. Generally, he feels weak and dizzy now and did have a fever of 101F there are no other associated signs or symptoms. There are no other modifying factors. 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: Other (see below) (Nothing) left side abd Pain Score (Numeric/FACES): 9 - Related Data Allergies Allergy/AdvReac Type Severity Reaction Status Date / Time No Known Allergies Allergy Verified 08/04/20 23:11 Home Meds: Home Meds L.acidoph,Paracasei, B.lactis [Probiotic] 1 each PO DAILY 08/04/20 [History] Omeprazole 40 mg PO DAILY 08/04/20 [History] traMADol [Ultram] 50 mg PO Q6H PRN #8 tab 08/05/20 [Rx] Ondansetron [Zofran ODT] 4 mg PO Q6H PRN #10 tab.dis 04/14/21 [Rx] Past Medical History Gastrointestinal History: Reports: GERD, PUD Other Gastrointestinal History: CHRONIC DIARRHEA Musculoskeletal History: Reports: Fracture Other Musculoskeletal History: hx fx L arm Neurological History: Reports: Headaches, Chronic Psychiatric History: Reports: Addiction, Anxiety, Panic Attack Other Psychiatric History: hx ETOH abuse & drug abuse (pot) Endocrine/Metabolic History: Reports: Obesity/BMI 30+ - Infectious Disease History Infectious Disease History: Reports: None - Past Surgical History HEENT Surgical History: Reports: Oral Surgery Other HEENT Surgeries/Procedures: WISDOM TEETH EXTRACTION UNDER GENERAL GI Surgical History: Reports: Appendectomy, Cholecystectomy, Colonoscopy, EGD Social & Family History - Family History GI: Reports: Other (See Below) Other GI Family History: AUNT WITH CROHN'S DISEASE - Tobacco Use Tobacco Use Status *Q: Current Every Day Tobacco User - Caffeine Use Caffeine Use: Reports: Soda - Alcohol Use Alcohol Use History: Yes Alcohol Use Frequency: Weekly (Usually 6-8 beers on the weekend) - Living Situation & Occupation Living situation: Reports: Occupation: Employed (Works for the [employer].) ED ROS GENERAL - Review of Systems Review Of Systems: See Below Constitutional: Reports: Fever, Chills, Malaise, Fatigue, Decreased Appetite HEENT: Reports: Throat Pain, Other (Nasal congestion) Respiratory: Denies: Shortness of Breath, Cough Cardiovascular: Reports: Lightheadedness. Denies: Chest Pain Endocrine: Reports: Fatigue GI/Abdominal: Reports: Abdominal Pain, Diarrhea, Nausea, Vomiting. Denies: Hematemesis, Hematochezia : Denies: Dysuria, Frequency, Hematuria Musculoskeletal: Reports: Back Pain, Other (Body aches) Skin: Denies: Diaphoresis, Rash Neurological: Reports: Dizziness, Headache, Weakness (Generalized) Psychiatric: Reports: Anxiety Hematologic/Lymphatic: Denies: Easy Bleeding, Easy Bruising ED EXAM, GENERAL - Physical Exam Exam: See Below Exam Limited By: No Limitations General Appearance: Alert, WD/WN, Anxious, Moderate Distress (Appears in some pain.) Eye Exam: Bilateral Eye: EOMI, Normal Inspection, PERRL Ears: Normal External Exam, Hearing Grossly Normal Ear Exam: Bilateral Ear: Auricle Normal Nose: No Blood, Nasal Drainage Throat/Mouth: Normal Lips, Normal Voice, No Airway Compromise, Other (Erythema posteriorly) Head: Atraumatic, Normocephalic Neck: Normal Inspection, Supple, Non-Tender, Full Range of Motion Respiratory/Chest: No Respiratory Distress, Lungs Clear, Normal Breath Sounds, No Accessory Muscle Use, Chest Non-Tender Cardiovascular: Normal Peripheral Pulses, No Edema, No Murmur, Tachycardia Peripheral Pulses: 2+: Radial (L), Radial (R) GI/Abdominal: Normal Bowel Sounds, Soft, Tender (In the left lower abdomen and suprapubic area.) Back Exam: Normal Inspection. No: CVA Tenderness (R), CVA Tenderness (L) Extremities: Normal Inspection, Normal Range of Motion, Non-Tender, No Pedal Edema, Normal Capillary Refill Neurological: Alert, Oriented, CN II-XII Intact, Normal Cognition, No Motor/Sensory Deficits Psychiatric: Anxious Skin Exam: Warm, Dry, Intact, Normal Color, No Rash Course - Vital Signs Last Recorded V/S: Last Vital Signs Temp 38.3 C H 04/14/21 02:26 Pulse 105 H 04/14/21 02:26 Resp 18 04/14/21 02:26 BP 148/87 H 04/14/21 02:26 Pulse Ox 98 04/14/21 02:26 - Orders/Labs/Meds Orders: Active Orders 24 hr Category Date Time Status Abdomen Pelvis wo Cont [CT] Stat Exams 04/14/21 04:23 Taken Sodium Chloride 0.9% [Saline Flush] Med 04/14/21 02:57 Active 10 ml FLUSH ASDIRECTED PRN Peripheral IV Insertion Adult [OM.PC] Routine Oth 04/14/21 02:57 Ordered Medication Orders Sodium Chloride (Sodium Chloride 0.9% 10 Ml Syringe) 10 ml FLUSH ASDIRECTED PRN PRN Reason: Keep Vein Open Last Admin: 04/14/21 03:36 Dose: 10 ml Documented by: ERASMO Labs: Laboratory Tests 04/14/21 04/14/21 04/14/21 Range/Units 03:02 03:18 03:18 WBC 10.0 (3.2-10.1) x10-3/uL RBC 5.31 (3.90-5.90) x10(6)uL Hgb 15.6 (12.9-17.7) g/dL Hct 46.1 (38.3-50.1) % MCV 86.8 (80.8-98.7) fL MCH 29.4 (27.0-33.3) pg MCHC 33.8 (28.7-35.3) g/dL RDW 13.3 (12.4-15.0) % Plt Count 196 (117-477) x10(3)uL MPV 7.8 (6.7-11.0) fL Neut % (Auto) 75.9 H (40.3-71.8) % Lymph % (Auto) 15.0 L (15.8-45.3) % [place] % (Auto) 8.7 (5.5-15.2) % Eos % (Auto) 0.1 (0.1-6.8) % Baso % (Auto) 0.3 (0.3-3.8) % Neut # (Auto) 7.6 H (1.7-6.9) x10-3/uL Lymph # (Auto) 1.5 (0.5-4.5) x10-3/uL [place] # (Auto) 0.9 (0.0-1.2) x10-3/uL Eos # (Auto) 0.0 (0.0-0.6) x10-3/uL Baso # (Auto) 0.0 (0.0-0.3) x10-3/uL Sodium 139 (135-145) mmol/L Potassium 3.8 (3.5-5.3) mmol/L Chloride 104 (100-110) mmol/L Carbon Dioxide 22 (21-32) mmol/L BUN 18 (7-18) mg/dL Creatinine 1.2 (0.70-1.30) mg/dL Est Cr Clr Drug Dosing 88.67 mL/min Estimated GFR (MDRD) > 60 (>60) BUN/Creatinine Ratio 15.0 (9-20) Glucose 112 (80-116) mg/dL Calcium 9.0 (8.6-10.2) mg/dL Magnesium 1.8 (1.8-2.5) mg/dL Total Bilirubin 1.0 (0.1-1.3) mg/dL AST 32 H D (5-25) IU/L ALT 56 H D (12-36) U/L Alkaline Phosphatase 105 (56-112) IU/L C-Reactive Protein (0.5-0.9) mg/dL Total Protein 7.7 (6.0-8.0) g/dL Albumin 4.3 (3.5-5.2) g/dL Globulin 3.4 g/dL Albumin/Globulin Ratio 1.3 Lipase (73-393) U/L Urine Color Yellow (YELLOW) Urine Appearance Clear (CLEAR) Urine pH 5.0 (5.0-6.5) Ur Specific [place] 1.020 (1.010-1.025) Urine Protein Trace (NEGATIVE) mg/dL Urine Glucose (UA) Normal (NORMAL) mg/dL Urine Ketones Negative (NEGATIVE) mg/dL Urine Occult Blood Moderate H (NEGATIVE) Urine Nitrite Negative (NEGATIVE) Urine Bilirubin Negative (NEGATIVE) Urine Urobilinogen 4 H (NEGATIVE) mg/dL Ur Leukocyte Esterase Negative (NEGATIVE) Urine RBC 5-10 H (0-5) Urine WBC 0-5 (0-5) Ur Squamous Epith Cells Few H (NS,R,O) Urine Bacteria Few H (NS) Fine Granular Casts Few H (NS) Urine Mucus Moderate H (NS) SARS-CoV-2 RNA (HANNAH) (NEGATIVE) Group A Strep (PCR) (NOT DETECT) 04/14/21 04/14/21 Range/Units 03:18 03:20 WBC (3.2-10.1) x10-3/uL RBC (3.90-5.90) x10(6)uL Hgb (12.9-17.7) g/dL Hct (38.3-50.1) % MCV (80.8-98.7) fL MCH (27.0-33.3) pg MCHC (28.7-35.3) g/dL RDW (12.4-15.0) % Plt Count (117-477) x10(3)uL MPV (6.7-11.0) fL Neut % (Auto) (40.3-71.8) % Lymph % (Auto) (15.8-45.3) % [place] % (Auto) (5.5-15.2) % Eos % (Auto) (0.1-6.8) % Baso % (Auto) (0.3-3.8) % Neut # (Auto) (1.7-6.9) x10-3/uL Lymph # (Auto) (0.5-4.5) x10-3/uL [place] # (Auto) (0.0-1.2) x10-3/uL Eos # (Auto) (0.0-0.6) x10-3/uL Baso # (Auto) (0.0-0.3) x10-3/uL Sodium (135-145) mmol/L Potassium (3.5-5.3) mmol/L Chloride (100-110) mmol/L Carbon Dioxide (21-32) mmol/L BUN (7-18) mg/dL Creatinine (0.70-1.30) mg/dL Est Cr Clr Drug Dosing mL/min Estimated GFR (MDRD) (>60) BUN/Creatinine Ratio (9-20) Glucose (80-116) mg/dL Calcium (8.6-10.2) mg/dL Magnesium (1.8-2.5) mg/dL Total Bilirubin (0.1-1.3) mg/dL AST (5-25) IU/L ALT (12-36) U/L Alkaline Phosphatase (56-112) IU/L C-Reactive Protein 2.1 H (0.5-0.9) mg/dL Total Protein (6.0-8.0) g/dL Albumin (3.5-5.2) g/dL Globulin g/dL Albumin/Globulin Ratio Lipase 132 (73-393) U/L Urine Color (YELLOW) Urine Appearance (CLEAR) Urine pH (5.0-6.5) Ur Specific [place] (1.010-1.025) Urine Protein (NEGATIVE) mg/dL Urine Glucose (UA) (NORMAL) mg/dL Urine Ketones (NEGATIVE) mg/dL Urine Occult Blood (NEGATIVE) Urine Nitrite (NEGATIVE) Urine Bilirubin (NEGATIVE) Urine Urobilinogen (NEGATIVE) mg/dL Ur Leukocyte Esterase (NEGATIVE) Urine RBC (0-5) Urine WBC (0-5) Ur Squamous Epith Cells (NS,R,O) Urine Bacteria (NS) Fine Granular Casts (NS) Urine Mucus (NS) SARS-CoV-2 RNA ([place]AN[place]H) Negative (NEGATIVE) Group A Strep (PCR) Not detected (NOT DETECT) Meds: Medications Generic Name Dose Route Start Last Admin Trade Name Fidel PRN Reason Stop Dose Admin Sodium Chloride 10 ml 04/14/21 02:57 04/14/21 03:36 Sodium Chloride 0.9% 10 Ml Syringe FLUSH 10 ml ASDIRECTED PRN Administration Keep Vein Open Discontinued Medications Generic Name Dose Route Start Last Admin Trade Name Fidel PRN Reason Stop Dose Admin Acetaminophen 1,000 mg 04/14/21 03:00 04/14/21 03:20 Acetaminophen 500 Mg Tab PO 04/14/21 03:01 1,000 mg ONETIME ONE Administration Sodium Chloride 1,000 mls @ 999 mls/hr 04/14/21 02:59 04/14/21 03:35 Normal Saline IV 04/14/21 03:59 999 mls/hr .BOLUS ONE Administration Ondansetron HCl 4 mg 04/14/21 02:59 04/14/21 03:20 Ondansetron 4 Mg/2 Ml Sdv IVPUSH 04/14/21 03:00 4 mg ONETIME ONE Administration - Radiology Interpretation Free Text/Narrative:: CT of the abdomen and pelvis showed no acute abnormality in the abdomen or pelvis. There to small nonobstructing right renal calculi in the right kidney. This was per the [facility] radiologist. - Re-Assessments/Exams Free Text/Narrative Re-Assessment/Exam: 04/14/21 04:20: White blood cell Count is 10.0. Hemoglobin is 15.6. Platelet count is normal. A serum electrolyte profile was normal. There is mild elevation in his AST and ALT. A CRP was 2.1. Urinalysis had 5-10 red cells per high power field. A strep screen was negative. A Covid test was negative. With the patient having left lower quadrant abdominal pain, some blood in his urine and diarrhea, I will send the patient or CT scan of his abdomen and pelvis. He has received normal saline 1 L as a bolus and Zofran 4 mg IV and he does feel somewhat improved. He also received Tylenol 1000 mg orally and his temp is down to 100F. 04/14/21 05:30: Patient feels improved. There has been no more vomiting. His pain is improved. His nausea has resolved. He has had a few more loose stools but even they are decreasing. The CT scan of his abdomen and pelvis shows no acute abnormality and nothing to explain his pain. The patient appears to have a viral type illness. I will send a prescription of Zofran to his pharmacy. I will also give him off 2 days of work. Precautions and reasons for return to the emergency department were discussed with the patient while he was in the emergency department and were detailed in the patient's discharge instructions. Departure - Departure Time of Disposition: 05:40 Disposition: Home, Self-Care 01 Condition: Good Clinical Impression: Viral syndrome, Vomiting and diarrhea, Dehydration Pharyngitis Qualifiers: Pharyngitis/tonsillitis etiology: unspecified etiology Qualified Code(s): J02.9 - Acute pharyngitis, unspecified Abdominal pain Qualifiers: Abdominal location: left lower quadrant Qualified Code(s): R10.32 - Left lower quadrant pain - Discharge Information Prescriptions: Ondansetron [Zofran ODT] 4 mg PO Q6H PRN #10 tab.dis PRN Reason: Nausea/Vomiting Instructions: Nausea and Vomiting, Adult, [id number], Dehydration, Adult, [id number], Abdominal Pain, Adult, [id number], Viral Illness, Adult, Sore Throat, [id number] Referrals: Hyacinth Waters, [employer]INE [employer]ENDER [Primary Care Provider] - Forms: ED Return to Work/School Form Additional Instructions: Your blood tests were all reassuringly normal. Your stropped test was negative. Your Covid test was negative. Your urine test did show a small amount of blood but the CT scan of your abdomen and pelvis showed no evidence of obstructing kidney stones or infection or inflammation. You did have some small kidney stones within your right kidney. You appear to have a viral illness. This is something that should get better on its own with rest and rehydration. I have sent a prescription to your pharmacy for Zofran to help with any nausea the you may have. You can take Tylenol and ibuprofen as needed for fever or pain. No work for the next 2 days. Back to the emergency department for unrelenting vomiting, blood in your stool, severe weakness, difficulty breathing or any other concerning signs or symptoms. Sepsis Event Note (ED) - Focused Exam Vital Signs: Vital Signs Temp Pulse Resp BP Pulse Ox 04/14/21 02:26 38.3 C H 105 H 18 148/87 H 98 - My Orders Last 24 Hours: My Active Orders 04/14/21 02:57 Sodium Chloride 0.9% [Saline Flush] 10 ml FLUSH ASDIRECTED PRN Peripheral IV Insertion Adult [OM.PC] Routine 04/14/21 04:23 Abdomen Pelvis wo Cont [CT] Stat - Assessment/Plan Last 24 Hours: My Active Orders 04/14/21 02:57 Sodium Chloride 0.9% [Saline Flush] 10 ml FLUSH ASDIRECTED PRN Peripheral IV Insertion Adult [OM.PC] Routine 04/14/21 04:23 Abdomen Pelvis wo Cont [CT] Stat
[2021-04-14] MEDS ORDERED: Sodium Chloride 0.9% 10 ML Syringe FLUSH PRN (02:57)
[2021-04-14] MEDS ORDERED: Sodium Chloride 0.9% 1,000 ML IV ONE (02:59)
[2021-04-14] MEDS ORDERED: Ondansetron 4 MG/2 ML SDV IVPUSH ONE (02:59)
[2021-04-14] MEDS ORDERED: Acetaminophen 500 MG Tab PO ONE (03:00)
[2021-04-14 03:51] LABS: STREP A BY PCR NOT DETECTED (NOT DETECT)
[2021-04-14 04:16] LABS: CORONAVIRUS COVID-19 NAA NEGATIVE (NEGATIVE)
[2021-04-14 06:00] VITALS: BP 128/86; PULSE 79
== END 2021-04-14 06:00 | disposition home or self-care (01) ==
LOC: FB.ED 02:26
DX: E86.0 Dehydration (principal); J02.9 Acute pharyngitis, unspecified; B34.9 Viral infection, unspecified; K21.9 Gastro-esophageal reflux disease without esophagitis; E66.9 Obesity, unspecified; Z68.34 Body mass index [BMI] 34.0-34.9, adult; Z72.0 Tobacco use; Z79.899 Other long term (current) drug therapy; Z20.822 Contact with and (suspected) exposure to COVID-19
CPT/HCPCS: 36415; 74176; 80053; 81001; 83690; 83735; 85025; 86140; 87651-QW; 96374; 99284-25; A9270-GY; J2405; J7030; U0002

== ENCOUNTER 2021-04-14 22:25 | Emergency (ER) | payer OTHER ==
[2021-04-14] MEDS ORDERED: Meperidine PF 50 MG/ML Syringe IM ONE (22:48)
[2021-04-14] MEDS ORDERED: hydrOXYzine HCl 50 MG/ML SDV IM ONE (22:48)
[2021-04-14 22:49] VITALS: BP 144/83; PULSE 94
--- NOTE | 2021-04-14 22:51 | EDM.PDOC ---
ED HPI GENERAL MEDICAL PROBLEM - General Chief Complaint: Chest Pain Stated Complaint: CHEST PAIN Time Seen by Provider: 04/14/21 22:48 Source of Information: Reports: Patient History Limitations: Reports: No Limitations - History of Present Illness INITIAL COMMENTS - FREE TEXT/NARRATIVE: Shahram complains of chest pain. This is for the last few days,He was seen yesterday and tested for covid,found to be negative. He also has palpitation,SOB,sore throat.No fever. The chest pain is left right sided. - Related Data Allergies Allergy/AdvReac Type Severity Reaction Status Date / Time No Known Allergies Allergy Verified 08/04/20 23:11 Home Meds: Home Meds L.acidoph,Paracasei, B.lactis [Probiotic] 1 each PO DAILY 08/04/20 [History] Omeprazole 40 mg PO DAILY 08/04/20 [History] traMADol [Ultram] 50 mg PO Q6H PRN #8 tab 08/05/20 [Rx] Ondansetron [Zofran ODT] 4 mg PO Q6H PRN #10 tab.dis 04/14/21 [Rx] Past Medical History HEENT History: Reports: None Cardiovascular History: Reports: None Respiratory History: Reports: None Gastrointestinal History: Reports: GERD, PUD Other Gastrointestinal History: CHRONIC DIARRHEA Genitourinary History: Reports: None Musculoskeletal History: Reports: Fracture Other Musculoskeletal History: hx fx L arm Neurological History: Reports: Headaches, Chronic Psychiatric History: Reports: Addiction, Anxiety, Panic Attack Other Psychiatric History: hx ETOH abuse & drug abuse (pot) Endocrine/Metabolic History: Reports: Obesity/BMI 30+ Hematologic History: Reports: None Immunologic History: Reports: None Oncologic (Cancer) History: Reports: None Dermatologic History: Reports: None - Infectious Disease History Infectious Disease History: Reports: None - Past Surgical History Head Surgeries/Procedures: Reports: None HEENT Surgical History: Reports: Oral Surgery Other HEENT Surgeries/Procedures: WISDOM TEETH EXTRACTION UNDER GENERAL GI Surgical History: Reports: Appendectomy, Cholecystectomy, Colonoscopy, EGD Social & Family History - Family History Family Medical History: No Pertinent Family History GI: Reports: Other (See Below) Other GI Family History: AUNT WITH CROHN'S DISEASE - Tobacco Use Tobacco Use Status *Q: Unknown Ever Used Tobacco - Caffeine Use Caffeine Use: Reports: Tea - Living Situation & Occupation Living situation: Reports: Occupation: Employed (Works for the [employer] ED ROS GENERAL - Review of Systems Review Of Systems: Comprehensive ROS is negative, except as noted in HPI. ED EXAM, GENERAL - Physical Exam Exam: See Below Exam Limited By: No Limitations General Appearance: Alert, WD/WN, Anxious Ears: Normal External Exam, Normal Canal, Hearing Grossly Normal, Normal TMs Ear Exam: Bilateral Ear: Auricle Normal, Canal Normal, TM normal Nose: Normal Inspection Throat/Mouth: Normal Inspection Head: Atraumatic, Normocephalic Neck: Normal Inspection Respiratory/Chest: No Respiratory Distress, Lungs Clear #1 Interpretation EKG Date: 04/14/21 Rhythm: NSR [place]: Normal P-Wave: Present QRS: Normal Comparison: NA - No Prior EKG Course - Vital Signs Last Recorded V/S: Last Vital Signs Temp 98.6 F 04/14/21 22:47 Pulse 94 04/14/21 22:47 Resp 18 04/14/21 22:47 BP 144/83 H 04/14/21 22:47 Pulse Ox 95 04/14/21 22:47 - Orders/Labs/Meds Orders: Active Orders 24 hr Category Date Time Status Chest 2V [CR] Stat Exams 04/14/21 22:48 Taken Meds: Medications Discontinued Medications Generic Name Dose Route Start Last Admin Trade Name Freq PRN Reason Stop Dose Admin Hydroxyzine HCl 50 mg 04/14/21 22:48 Hydroxyzine Hcl 50 Mg/Ml Sdv IM 04/14/21 22:49 ONETIME ONE Meperidine HCl 50 mg 04/14/21 22:48 Meperidine Pf 50 Mg/Ml Syringe IM 04/14/21 22:49 ONETIME ONE Departure - Departure Time of Disposition: 23:31 Disposition: Home, Self-Care 01 Clinical Impression: Chest pain, Anxiety Instructions: Nonspecific Chest Pain, Adult Referrals: Hyacinth Waters DUCT LAYER [Primary Care Provider] - (PRN) Forms: ED Department Discharge Sepsis Event Note (ED) - Evaluation Sepsis Screening Result: No Definite Risk - Focused Exam Vital Signs: Vital Signs Temp Pulse Resp BP Pulse Ox 04/14/21 22:47 98.6 F 94 18 144/83 H 95 - Problem List & Annotations (1) Chest pain SNOMED Code(s): 60012356 Code(s): R07.9 - CHEST PAIN, UNSPECIFIED Status: Acute Current Visit: No Annotation/Comment:: Chest wall pain. anterior. - Problem List Review Problem List Initiated/Reviewed/Updated: Yes - My Orders Last 24 Hours: My Active Orders 04/14/21 22:48 Chest 2V [CR] Stat - Assessment/Plan Last 24 Hours: My Active Orders 04/14/21 22:48 Chest 2V [CR] Stat Plan: Demewrol and Vistaril IM. DC home.CXR WNL
[2021-04-14] MEDS ORDERED: Alum Hydroxide/Mag Hydroxide 15 ML, Lidocaine 2% 15 ML PO ONE ×2 (23:40)
== END 2021-04-14 23:47 | disposition home or self-care (01) ==
LOC: FB.ED 22:25
DX: R07.9 Chest pain, unspecified (principal); F41.9 Anxiety disorder, unspecified; K21.9 Gastro-esophageal reflux disease without esophagitis; E66.9 Obesity, unspecified; Z68.34 Body mass index [BMI] 34.0-34.9, adult; Z79.899 Other long term (current) drug therapy
CPT/HCPCS: 71046; 93005; 96372; 99285-25; A9270-GY; J2175; J3410

== ENCOUNTER 2021-05-22 06:26 | Emergency (ER) | payer OTHER ==
[2021-05-22] MEDS ORDERED: Alum Hydroxide/Mag Hydroxide 15 ML, Lidocaine 2% 15 ML PO ONE ×2 (06:43)
[2021-05-22] MEDS ORDERED: Simethicone 80 MG Tab.Chew PO STA (07:33)
[2021-05-22] MEDS ORDERED: traMADol 50 MG Tab PO STA (07:33)
--- NOTE | 2021-05-22 07:35 | EDM.PDOC ---
ED HPI GENERAL MEDICAL PROBLEM - General Chief Complaint: Abdominal Pain Stated Complaint: STOMACH PAINS Time Seen by Provider: 05/22/21 06:45 Source of Information: Reports: Patient History Limitations: Reports: No Limitations - History of Present Illness INITIAL COMMENTS - FREE TEXT/NARRATIVE: Patient presented to the ED because of RLW and periumbilical pain which started 4 days ago. The pain is sharp and burning and he is bloated most of the time. there is no fever, chills, cough or cold. N/V/D. - Related Data Allergies Allergy/AdvReac Type Severity Reaction Status Date / Time No Known Allergies Allergy Verified 05/22/21 08:14 Home Meds: Home Meds L.acidoph,Paracasei, B.lactis [Probiotic] 1 each PO DAILY 08/04/20 [History] Omeprazole 40 mg PO DAILY 08/04/20 [History] traMADol [Ultram] 50 mg PO Q6H PRN #8 tab 08/05/20 [Rx] Ondansetron [Zofran ODT] 4 mg PO Q6H PRN #10 tab.dis 04/14/21 [Rx] Simethicone 80 mg PO Q6H PRN #30 tab.chew 05/22/21 [Rx] hydrOXYzine pamoate [Hydroxyzine Pamoate] 1 cap PO Q6H PRN 05/22/21 [History] Past Medical History HEENT History: Reports: None Cardiovascular History: Reports: None Respiratory History: Reports: None Gastrointestinal History: Reports: GERD, PUD Other Gastrointestinal History: CHRONIC DIARRHEA Genitourinary History: Reports: None Musculoskeletal History: Reports: Fracture Other Musculoskeletal History: hx fx L arm Neurological History: Reports: Headaches, Chronic Psychiatric History: Reports: Addiction, Anxiety, Panic Attack Other Psychiatric History: hx ETOH abuse & drug abuse (pot) Endocrine/Metabolic History: Reports: Obesity/BMI 30+ Hematologic History: Reports: None Immunologic History: Reports: None Oncologic (Cancer) History: Reports: None Dermatologic History: Reports: None - Infectious Disease History Infectious Disease History: Reports: None - Past Surgical History Head Surgeries/Procedures: Reports: None HEENT Surgical History: Reports: Oral Surgery Other HEENT Surgeries/Procedures: WISDOM TEETH EXTRACTION UNDER GENERAL GI Surgical History: Reports: Appendectomy, Cholecystectomy, Colonoscopy, EGD Social & Family History - Family History Family Medical History: No Pertinent Family History GI: Reports: Other (See Below) Other GI Family History: AUNT WITH CROHN'S DISEASE - Caffeine Use Caffeine Use: Reports: Tea - Living Situation & Occupation Living situation: Reports: Occupation: Employed (Works for the [employer] ED ROS GENERAL - Review of Systems Review Of Systems: See Below Constitutional: Reports: No Symptoms HEENT: Reports: No Symptoms Respiratory: Reports: No Symptoms Cardiovascular: Reports: No Symptoms Endocrine: Reports: No Symptoms GI/Abdominal: Reports: Abdominal Pain : Reports: No Symptoms Musculoskeletal: Reports: No Symptoms Skin: Reports: No Symptoms Neurological: Reports: No Symptoms Psychiatric: Reports: No Symptoms ED EXAM, GI/ABD - Physical Exam Exam: See Below Exam Limited By: No Limitations General Appearance: Alert, No Apparent Distress Ears: Normal External Exam, Normal Canal Nose: Normal Inspection, Normal Mucosa, No Blood Throat/Mouth: Normal Inspection, Normal Lips, Normal Teeth Head: Atraumatic, Normocephalic Neck: Normal Inspection, Supple, Non-Tender, Full Range of Motion Respiratory/Chest: No Respiratory Distress, Lungs Clear, Normal Breath Sounds, No Accessory Muscle Use, Chest Non-Tender Cardiovascular: Normal Peripheral Pulses, Regular Rate, Rhythm, No Edema, No Gallop, No JVD, No Murmur, No Rub GI/Abdominal Exam: Normal Bowel Sounds, Soft, Non-Tender, No Organomegaly, No Distention, No Abnormal Bruit, No Mass Back Exam: Normal Inspection, Full Range of Motion Extremities: Normal Inspection, Normal Range of Motion, Non-Tender, No Pedal Edema, Normal Capillary Refill Course - Vital Signs Text/Narrative:: Lab and Ct abd/pelvis result was reviewed and discussed with patient Tramadol 100 mg PO x1 Simethicone 80 mg PO x1 GI cocktail 1 PO x1 dose Last Recorded V/S: Last Vital Signs Temp 37.2 C 05/22/21 06:30 Pulse 76 05/22/21 08:30 Resp 20 05/22/21 08:30 BP 136/78 05/22/21 08:30 Pulse Ox 99 05/22/21 08:30 - Orders/Labs/Meds Labs: Laboratory Tests 05/22/21 05/22/21 05/22/21 Range/Units 07:45 07:45 07:45 WBC 9.2 (3.2-10.1) x10-3/uL RBC 5.32 (3.90-5.90) x10(6)uL Hgb 15.8 (12.9-17.7) g/dL Hct 45.7 (38.3-50.1) % MCV 85.9 (80.8-98.7) fL MCH 29.8 (27.0-33.3) pg MCHC 34.6 (28.7-35.3) g/dL RDW 12.9 (12.4-15.0) % Plt Count 258 (117-477) x10(3)uL MPV 7.5 (6.7-11.0) fL Neut % (Auto) 66.0 (40.3-71.8) % Lymph % (Auto) 24.8 (15.8-45.3) % [place] % (Auto) 7.8 (5.5-15.2) % Eos % (Auto) 1.0 (0.1-6.8) % Baso % (Auto) 0.4 (0.3-3.8) % Neut # (Auto) 6.1 (1.7-6.9) x10-3/uL Lymph # (Auto) 2.3 (0.5-4.5) x10-3/uL [place] # (Auto) 0.7 (0.0-1.2) x10-3/uL Eos # (Auto) 0.1 (0.0-0.6) x10-3/uL Baso # (Auto) 0.0 (0.0-0.3) x10-3/uL Sodium 144 (135-145) mmol/L Potassium 4.4 (3.5-5.3) mmol/L Chloride 107 (100-110) mmol/L Carbon Dioxide 26 (21-32) mmol/L BUN 20 H (7-18) mg/dL Creatinine 1.2 (0.70-1.30) mg/dL Est Cr Clr Drug Dosing 88.67 mL/min Estimated GFR (MDRD) > 60 (>60) BUN/Creatinine Ratio 16.7 (9-20) Glucose 110 (80-116) mg/dL Calcium 9.0 (8.6-10.2) mg/dL Total Bilirubin 0.8 (0.1-1.3) mg/dL AST 47 H D (5-25) IU/L ALT 74 H D (12-36) U/L Alkaline Phosphatase 113 H (56-112) IU/L Total Protein 7.1 (6.0-8.0) g/dL Albumin 3.9 (3.5-5.2) g/dL Globulin 3.2 g/dL Albumin/Globulin Ratio 1.2 Amylase 64 (25-115) U/L Lipase 130 (73-393) U/L Urine Color (YELLOW) Urine Appearance (CLEAR) Urine pH (5.0-6.5) Ur Specific [place] (1.010-1.025) Urine Protein (NEGATIVE) mg/dL Urine Glucose (UA) (NORMAL) mg/dL Urine Ketones (NEGATIVE) mg/dL Urine Occult Blood (NEGATIVE) Urine Nitrite (NEGATIVE) Urine Bilirubin (NEGATIVE) Urine Urobilinogen (NEGATIVE) mg/dL Ur Leukocyte Esterase (NEGATIVE) Urine WBC (0-5) Ur Squamous Epith Cells (NS,R,O) Urine Bacteria (NS) 05/22/21 Range/Units 07:56 WBC (3.2-10.1) x10-3/uL RBC (3.90-5.90) x10(6)uL Hgb (12.9-17.7) g/dL Hct (38.3-50.1) % MCV (80.8-98.7) fL MCH (27.0-33.3) pg MCHC (28.7-35.3) g/dL RDW (12.4-15.0) % Plt Count (117-477) x10(3)uL MPV (6.7-11.0) fL Neut % (Auto) (40.3-71.8) % Lymph % (Auto) (15.8-45.3) % [place] % (Auto) (5.5-15.2) % Eos % (Auto) (0.1-6.8) % Baso % (Auto) (0.3-3.8) % Neut # (Auto) (1.7-6.9) x10-3/uL Lymph # (Auto) (0.5-4.5) x10-3/uL [place] # (Auto) (0.0-1.2) x10-3/uL Eos # (Auto) (0.0-0.6) x10-3/uL Baso # (Auto) (0.0-0.3) x10-3/uL Sodium (135-145) mmol/L Potassium (3.5-5.3) mmol/L Chloride (100-110) mmol/L Carbon Dioxide (21-32) mmol/L BUN (7-18) mg/dL Creatinine (0.70-1.30) mg/dL Est Cr Clr Drug Dosing mL/min Estimated GFR (MDRD) (>60) BUN/Creatinine Ratio (9-20) Glucose (80-116) mg/dL Calcium (8.6-10.2) mg/dL Total Bilirubin (0.1-1.3) mg/dL AST (5-25) IU/L ALT (12-36) U/L Alkaline Phosphatase (56-112) IU/L Total Protein (6.0-8.0) g/dL Albumin (3.5-5.2) g/dL Globulin g/dL Albumin/Globulin Ratio Amylase (25-115) U/L Lipase (73-393) U/L Urine Color Yellow (YELLOW) Urine Appearance Clear (CLEAR) Urine pH 5.0 (5.0-6.5) Ur Specific [place] 1.015 (1.010-1.025) Urine Protein Negative (NEGATIVE) mg/dL Urine Glucose (UA) Normal (NORMAL) mg/dL Urine Ketones Negative (NEGATIVE) mg/dL Urine Occult Blood Negative (NEGATIVE) Urine Nitrite Negative (NEGATIVE) Urine Bilirubin Negative (NEGATIVE) Urine Urobilinogen Normal (NEGATIVE) mg/dL Ur Leukocyte Esterase Negative (NEGATIVE) Urine WBC 0-5 (0-5) Ur Squamous Epith Cells Few H (NS,R,O) Urine Bacteria Few H (NS) Meds: Medications Discontinued Medications Generic Name Dose Route Start Last Admin Trade Name Freq PRN Reason Stop Dose Admin Al Hydroxide/Mg Hydroxide 15 0 ml 05/22/21 06:43 05/22/21 06:45 ml/ Lidocaine HCl 15 ml PO 05/22/21 06:44 30 ml ONETIME ONE Administration Simethicone 80 mg 05/22/21 07:33 05/22/21 07:51 Simethicone 80 Mg Tab.Chew PO 05/22/21 07:34 80 mg NOW STA Administration Tramadol HCl 100 mg 05/22/21 07:33 05/22/21 07:51 Tramadol 50 Mg Tab PO 05/22/21 07:34 100 mg NOW STA Administration Departure - Departure Time of Disposition: 19:50 Disposition: Home, Self-Care 01 Condition: Good Clinical Impression: Gastritis, Abdominal bloating - Discharge Information Prescriptions: Simethicone 80 mg PO Q6H PRN #30 tab.chew PRN Reason: bloating/gas Instructions: Gastritis, Adult, [id number], Abdominal Bloating Referrals: PCP,None [Primary Care Provider] - Forms: ED Department Discharge Additional Instructions: Please read discharge instructions on Gastritis and Abdominal bloating Continue omeprazole 40 mg daily Simethicone 80 mg every 6 hours as needed for bloating/gas Follow up as needed Sepsis Event Note (ED) - Evaluation Sepsis Screening Result: No Definite Risk
[2021-05-22 09:36] VITALS: BP 136/78; PULSE 76
== END 2021-05-22 08:45 | disposition home or self-care (01) ==
LOC: FB.ED 06:26
DX: K29.70 Gastritis, unspecified, without bleeding (principal); K21.9 Gastro-esophageal reflux disease without esophagitis; E66.9 Obesity, unspecified; Z68.35 Body mass index [BMI] 35.0-35.9, adult
CPT/HCPCS: 36415; 80053; 81001; 82150; 83690; 85025; 99284; A9270

== ENCOUNTER 2021-11-14 06:33 | Emergency (ER) | payer OTHER ==
[2021-11-14] MEDS ORDERED: Ondansetron 4 MG/2 ML SDV IVPUSH ONE (07:04)
[2021-11-14] MEDS ORDERED: Sodium Chloride 0.9% 1,000 ML IV ONE (07:04)
[2021-11-14] MEDS ORDERED: Ketorolac 30 MG/ML SDV IVPUSH ONE (07:04)
[2021-11-14] MEDS ORDERED: Sodium Chloride 0.9% 10 ML Syringe FLUSH PRN (07:15)
[2021-11-14] MEDS ORDERED: Magnesium Citrate Solution 296 ML Bottle PO ONE (08:37)
[2021-11-14 09:02] VITALS: BP 117/86; PULSE 74
== END 2021-11-14 08:55 | disposition home or self-care (01) ==
LOC: FB.ED 06:33
DX: K21.00 Gastro-esophageal reflux disease with esophagitis, without bleeding (principal); E86.0 Dehydration; M62.838 Other muscle spasm; E66.9 Obesity, unspecified; Z79.899 Other long term (current) drug therapy; Z72.0 Tobacco use; Z68.34 Body mass index [BMI] 34.0-34.9, adult
CPT/HCPCS: 36415; 74019; 80053; 83690; 85025; 86140; 96361; 96374; 96375; 99282; 99284-25; A9270-GY; J1885; J2405; J3490; J7030

== ENCOUNTER 2022-01-18 05:15 | Emergency (ER) | payer OTHER ==
[2022-01-18] MEDS ORDERED: Sodium Chloride 0.9% 1,000 ML IV ONE ×3 (05:37→06:50)
[2022-01-18 05:54] LABS: ESTIMATED GFR 65 mL/min (>60)
[2022-01-18] MEDS ORDERED: Ondansetron 4 MG/2 ML SDV IVPUSH ONE (05:56)
[2022-01-18] MEDS ORDERED: Morphine 4 MG/ML VIAL IVPUSH ONE (06:13)
[2022-01-18] MEDS ORDERED: Sodium Chloride 0.9% 50 ML IV ONE (06:50)
[2022-01-18 08:40] VITALS: BP 124/78; PULSE 92
[2022-01-18] MEDS ORDERED: Sodium Chloride 0.9% 10 ML Syringe FLUSH PRN (08:54)
== END 2022-01-18 07:35 ==
LOC: FB.ED 05:15
DX: S06.5X0A Traumatic subdural hemorrhage without loss of consciousness, initial encounter (principal); S01.01XA Laceration without foreign body of scalp, initial encounter; S91.012A Laceration without foreign body, left ankle, initial encounter; K21.9 Gastro-esophageal reflux disease without esophagitis; E66.9 Obesity, unspecified; Z68.30 Body mass index [BMI] 30.0-30.9, adult; Z79.899 Other long term (current) drug therapy; V29.9XXA Motorcycle rider (driver) (passenger) injured in unspecified traffic accident, initial encounter
CPT/HCPCS: 36415; 70450; 71045; 72125; 73501; 73600; 80053; 80307; 85025; 86850; 86900; 86901; 96361; 96374; 96375; 99285; J2270; J2405; J3490; J7030; 99284

== ENCOUNTER 2022-02-05 23:25 | Emergency (ER) | payer OTHER ==
[2022-02-05] MEDS ORDERED: hydrOXYzine HCl 50 MG/ML SDV IM ONE (23:30)
[2022-02-05] MEDS ORDERED: Ketorolac 30 MG/ML SDV IM ONE (23:30)
[2022-02-05 23:58] VITALS: BP 132/95; PULSE 88
== END 2022-02-06 00:17 | disposition home or self-care (01) ==
LOC: FB.ED 23:37
DX: S32.009A Unspecified fracture of unspecified lumbar vertebra, initial encounter for closed fracture (principal); R11.2 Nausea with vomiting, unspecified; E66.9 Obesity, unspecified; Z68.35 Body mass index [BMI] 35.0-35.9, adult; Z79.899 Other long term (current) drug therapy; V89.2XXA Person injured in unspecified motor-vehicle accident, traffic, initial encounter
CPT/HCPCS: 96372; 99282; 99283; J1885; J3410

== ENCOUNTER 2022-03-09 10:20 | Emergency (ER) | payer OTHER ==
[2022-03-09 11:24] VITALS: BP 136/85; PULSE 81
== END 2022-03-09 11:18 | disposition home or self-care (01) ==
LOC: FB.ED 10:20
DX: G89.29 Other chronic pain (principal); S32.009A Unspecified fracture of unspecified lumbar vertebra, initial encounter for closed fracture; S82.892B Other fracture of left lower leg, initial encounter for open fracture type I or II; Z79.899 Other long term (current) drug therapy; V89.2XXA Person injured in unspecified motor-vehicle accident, traffic, initial encounter; Y92.410 Unspecified street and highway as the place of occurrence of the external cause
CPT/HCPCS: 99283

== ENCOUNTER 2022-03-31 09:35 | Emergency (ER) | payer OTHER ==
[2022-03-31 10:26] VITALS: BP 150/86; PULSE 72
== END 2022-03-31 11:04 | disposition home or self-care (01) ==
LOC: FB.ED 09:35
DX: S32.009A Unspecified fracture of unspecified lumbar vertebra, initial encounter for closed fracture (principal); K21.9 Gastro-esophageal reflux disease without esophagitis; E66.9 Obesity, unspecified; Z86.16 Personal history of COVID-19; Z68.31 Body mass index [BMI] 31.0-31.9, adult; Z79.899 Other long term (current) drug therapy; V89.2XXA Person injured in unspecified motor-vehicle accident, traffic, initial encounter
CPT/HCPCS: 99283

== ENCOUNTER 2022-09-18 12:37 | Emergency (ER) | payer OTHER ==
[2022-09-18] MEDS ORDERED: Ondansetron 4 MG Tab.DIS PO ONE (12:38)
[2022-09-18] MEDS ORDERED: Sodium Chloride 0.9% 1,000 ML IV ONE (12:53)
[2022-09-18] MEDS ORDERED: Ondansetron 4 MG/2 ML SDV IVPUSH ONE (12:53)
[2022-09-18 13:16] LABS: ESTIMATED GFR 84 mL/min (>60)
[2022-09-18] MEDS ORDERED: Ketorolac 30 MG/ML SDV IVPUSH ONE (14:04)
[2022-09-18] MEDS: Sodium Chloride 0.9% 10 ML Syringe FLUSH PRN ×3 (14:16→14:27)
[2022-09-18] MEDS ORDERED: Prochlorperazine 10 MG Tab PO ONE (17:05)
[2022-09-18] MEDS ORDERED: cefTRIAXone 2 GM Vial IVPUSH ONE (17:20)
[2022-09-18] MEDS ORDERED: Tamsulosin 0.4 MG Cap.ER PO ONE (18:05)
[2022-09-18] MEDS ORDERED: Doxycycline 100 MG Tab PO ONE (18:08)
[2022-09-18 19:11] VITALS: BP 150/96; PULSE 87
== END 2022-09-18 18:25 | disposition home or self-care (01) ==
LOC: FB.ED 12:37
DX: N20.2 Calculus of kidney with calculus of ureter (principal); J18.9 Pneumonia, unspecified organism; R11.2 Nausea with vomiting, unspecified; R19.7 Diarrhea, unspecified; E86.0 Dehydration; K21.9 Gastro-esophageal reflux disease without esophagitis; E66.9 Obesity, unspecified; Z86.16 Personal history of COVID-19; Z79.899 Other long term (current) drug therapy; Z72.0 Tobacco use; Z20.822 Contact with and (suspected) exposure to COVID-19; Z68.34 Body mass index [BMI] 34.0-34.9, adult
CPT/HCPCS: 36415; 74176; 80053; 83690; 83735; 85025; 86140; 87635; 96361; 96374; 96375; 99284; A9270; J0696; J1885; J2405; J3360; J3490; J7030; Q0162; Q0164; U0002

== ENCOUNTER 2023-04-28 09:46 | Emergency (ER) | payer OTHER ==
[2023-04-28] MEDS ORDERED: Aspirin 81 MG Tab.Chew PO ONE (10:34)
[2023-04-28] MEDS ORDERED: Alum Hydroxide/Mag Hydroxide 15 ML, Lidocaine 2% 15 ML PO ONE ×2 (10:34)
[2023-04-28 10:56] LABS: BLOOD UREA NITROGEN,BUN 15 mg/dL (7-18); BUN/CREATININE RATIO 16.7 (9-20); CALCIUM 9.4 mg/dL (8.6-10.2); CARBON DIOXIDE,CO2 27 mmol/L (21-32); CHLORIDE,CL 104 mmol/L (100-110); CREATININE 0.9 mg/dL (0.70-1.30); EST CRCL DRUG DOSING (CG) 120.02 mL/min; ESTIMATED GFR 118 mL/min (>60); GLUCOSE RANDOM 107 mg/dL (80-116); POTASSIUM,K 4.2 mmol/L (3.5-5.3); SODIUM,NA 139 mmol/L (135-145)
[2023-04-28 11:02] LABS: ALANINE AMINOTRANSFERASE,ALT 48 U/L (12-36); ALBUMIN 3.8 g/dL (3.5-5.2); ALKALINE PHOSPHATASE 118 IU/L (56-112); ASPARTATE AMNIOTRANSFERASE,AST 26 IU/L (5-25); BILIRUBIN TOTAL 0.8 mg/dL (0.1-1.3); PROTEIN TOTAL,TP 7.5 g/dL (6.0-8.0)
[2023-04-28 11:07] LABS: BASOPHILS PERCENT AUTO 0.2 % (0.3-3.8); EOSINOPHILS ABSOLUTE AUTO 0.1 x10-3/uL (0.0-0.6); EOSINOPHILS PERCENT AUTO 0.7 % (0.1-6.8); HEMOGLOBIN 16.3 g/dL (12.9-17.7); LYMPHOCYTES ABSOLUTE AUTO 2.5 x10-3/uL (0.5-4.5); LYMPHOCYTES PERCENT AUTO 27.9 % (15.8-45.3); MEAN CORPUSCULAR HEMOGLOBIN 30.6 pg (27.0-33.3); MEAN CORPUSCULAR HGB CONC 34.8 g/dL (28.7-35.3); MEAN CORPUSCULAR VOLUME 88.1 fL (80.8-98.7); MONOCYTES ABSOLUTE AUTO 0.7 x10-3/uL (0.0-1.2); MONOCYTES PERCENT AUTO 7.4 % (5.5-15.2); NEUTROPHILS ABSOLUTE AUTO 5.8 x10-3/uL (1.7-6.9); NEUTROPHILS PERCENT AUTO 63.8 % (40.3-71.8); PLATELET COUNT,PLT 228 x10(3)uL (117-477); RED BLOOD CELL COUNT 5.34 x10(6)uL (3.90-5.90)
[2023-04-28 13:57] VITALS: BP 121/75; PULSE 60
== END 2023-04-28 12:08 | disposition home or self-care (01) ==
LOC: FB.ED 09:46
DX: K21.9 Gastro-esophageal reflux disease without esophagitis (principal); E66.9 Obesity, unspecified; Z79.899 Other long term (current) drug therapy; Z68.33 Body mass index [BMI] 33.0-33.9, adult
CPT/HCPCS: 36415; 71045; 80053; 84484; 85025; 93005; 99285; A9270-GY

== ENCOUNTER 2023-07-03 20:08 | Emergency (ER) | payer OTHER ==
[2023-07-03] MEDS ORDERED: Ketorolac 30 MG/ML SDV IVPUSH ONE (21:01)
[2023-07-03] MEDS ORDERED: Sodium Chloride 0.9% 1,000 ML IV ONE (21:01)
[2023-07-03 21:22] LABS: BASOPHILS ABSOLUTE AUTO 0.1 x10-3/uL (0.0-0.3); BASOPHILS PERCENT AUTO 0.6 % (0.3-3.8); EOSINOPHILS ABSOLUTE AUTO 0.1 x10-3/uL (0.0-0.6); EOSINOPHILS PERCENT AUTO 1.2 % (0.1-6.8); HEMATOCRIT 47.7 % (38.3-50.1); HEMOGLOBIN 16.6 g/dL (12.9-17.7); LYMPHOCYTES ABSOLUTE AUTO 2.2 x10-3/uL (0.5-4.5); LYMPHOCYTES PERCENT AUTO 18.5 % (15.8-45.3); MEAN CORPUSCULAR HEMOGLOBIN 30.6 pg (27.0-33.3); MEAN CORPUSCULAR HGB CONC 34.8 g/dL (28.7-35.3); MEAN PLATELET VOLUME 8.2 fL (6.7-11.0); MONOCYTES ABSOLUTE AUTO 0.7 x10-3/uL (0.0-1.2); MONOCYTES PERCENT AUTO 6.1 % (5.5-15.2); NEUTROPHILS ABSOLUTE AUTO 8.8 x10-3/uL (1.7-6.9); NEUTROPHILS PERCENT AUTO 73.6 % (40.3-71.8); PLATELET COUNT,PLT 235 x10(3)uL (117-477); RED BLOOD CELL COUNT 5.42 x10(6)uL (3.90-5.90)
[2023-07-03 21:26] LABS: BILIRUBIN,URINE NEGATIVE (NEGATIVE); GLUCOSE,URINE NORMAL (NORMAL); KETONES,URINE 15 mg/dL (NEGATIVE); LEUKOCYTE ESTERASE,URINE NEGATIVE (NEGATIVE); NITRITE,URINE NEGATIVE (NEGATIVE); OCCULT BLOOD,URINE MODERATE (NEGATIVE); PROTEIN,URINE NEGATIVE (NEGATIVE); UROBILINOGEN,URINE NORMAL (NEGATIVE)
[2023-07-03 21:30] LABS: APPEARANCE,URINE CLEAR (CLEAR); COLOR,URINE YELLOW (YELLOW); RBC,URINE 0-5 (0-5); WBC,URINE 0-5 (0-5)
[2023-07-03 21:31] LABS: BACTERIA,URINE RARE (NS); SQUAMOUS EPITHELIAL CELLS,UR OCCASIONAL (NS,R,O)
[2023-07-03 21:34] LABS: BLOOD UREA NITROGEN,BUN 21 mg/dL (7-18); BUN/CREATININE RATIO 19.1 (9-20); CALCIUM 9.1 mg/dL (8.6-10.2); CARBON DIOXIDE,CO2 26 mmol/L (21-32); CHLORIDE,CL 103 mmol/L (100-110); CREATININE 1.1 mg/dL (0.70-1.30); EST CRCL DRUG DOSING (CG) 98.19 mL/min; ESTIMATED GFR 93 mL/min (>60); GLUCOSE RANDOM 102 mg/dL (80-116); POTASSIUM,K 3.7 mmol/L (3.5-5.3); SODIUM,NA 137 mmol/L (135-145)
[2023-07-03 21:40] LABS: A/G RATIO 1.2; ALANINE AMINOTRANSFERASE,ALT 45 U/L (12-36); ALBUMIN 4.1 g/dL (3.5-5.2); ALKALINE PHOSPHATASE 131 IU/L (56-112); ASPARTATE AMNIOTRANSFERASE,AST 25 IU/L (5-25); BILIRUBIN TOTAL 0.8 mg/dL (0.1-1.3); PROTEIN TOTAL,TP 7.6 g/dL (6.0-8.0)
[2023-07-03 22:00] VITALS: BP 128/71
[2023-07-03 23:10] VITALS: PULSE 72
== END 2023-07-03 23:10 | disposition home or self-care (01) ==
LOC: FB.ED 20:08
DX: K58.9 Irritable bowel syndrome, unspecified (principal); E86.0 Dehydration; R79.89 Other specified abnormal findings of blood chemistry; R82.4 Acetonuria; K21.9 Gastro-esophageal reflux disease without esophagitis; E66.9 Obesity, unspecified; Z86.16 Personal history of COVID-19; Z79.899 Other long term (current) drug therapy; Z90.49 Acquired absence of other specified parts of digestive tract; F17.200 Nicotine dependence, unspecified, uncomplicated; Z68.34 Body mass index [BMI] 34.0-34.9, adult
CPT/HCPCS: 36415; 74176; 80053; 81001; 85025; 86140; 96361; 96374; 99284; J1885; J7030

== ENCOUNTER 2023-10-07 07:47 | Emergency (ER) | payer OTHER ==
[2023-10-07] MEDS: Alum Hydroxide/Mag Hydroxide 30 ML, Lidocaine 2% 15 ML PO ONE (08:34)
[2023-10-07] MEDS ORDERED: Ondansetron 4 MG Tab.DIS PO ONE (08:42)
[2023-10-07] MEDS ORDERED: Ketorolac 30 MG/ML SDV IM ONE (08:42)
[2023-10-07] MEDS: Ketorolac 30 MG/ML SDV IVPUSH ONE (09:02)
[2023-10-07] MEDS: Sodium Chloride 0.9% 1,000 ML IV ONE (09:02)
[2023-10-07] MEDS: Ondansetron 4 MG/2 ML SDV IVPUSH ONE (09:03)
[2023-10-07] MEDS: diphenhydrAMINE 50 MG/ML SDV IVPUSH ONE (09:03)
[2023-10-07 09:05] LABS: BASOPHILS PERCENT AUTO 0.4 % (0.3-3.8); EOSINOPHILS ABSOLUTE AUTO 0.1 x10-3/uL (0.0-0.6); HEMATOCRIT 45.6 % (38.3-50.1); HEMOGLOBIN 15.5 g/dL (12.9-17.7); LYMPHOCYTES ABSOLUTE AUTO 1.1 x10-3/uL (0.5-4.5); LYMPHOCYTES PERCENT AUTO 12.4 % (15.8-45.3); MEAN CORPUSCULAR HEMOGLOBIN 30.3 pg (27.0-33.3); MEAN CORPUSCULAR HGB CONC 34.1 g/dL (28.7-35.3); MEAN CORPUSCULAR VOLUME 89.1 fL (80.8-98.7); MEAN PLATELET VOLUME 7.9 fL (6.7-11.0); MONOCYTES ABSOLUTE AUTO 0.7 x10-3/uL (0.0-1.2); MONOCYTES PERCENT AUTO 7.8 % (5.5-15.2); NEUTROPHILS ABSOLUTE AUTO 6.9 x10-3/uL (1.7-6.9); NEUTROPHILS PERCENT AUTO 78.4 % (40.3-71.8); PLATELET COUNT,PLT 181 x10(3)uL (117-477); RED BLOOD CELL COUNT 5.12 x10(6)uL (3.90-5.90); RED CELL DISTRIBUTION WIDTH 13.4 % (12.4-15.0); WHITE BLOOD CELL COUNT,WBC 8.8 x10-3/uL (3.2-10.1)
[2023-10-07 09:07] LABS: BLOOD UREA NITROGEN,BUN 14 mg/dL (7-18); BUN/CREATININE RATIO 15.6 (9-20); CARBON DIOXIDE,CO2 28 mmol/L (21-32); CHLORIDE,CL 102 mmol/L (100-110); CREATININE 0.9 mg/dL (0.70-1.30); ESTIMATED GFR 118 mL/min (>60); GLUCOSE RANDOM 98 mg/dL (80-116); SODIUM,NA 138 mmol/L (135-145)
[2023-10-07 09:13] LABS: ALANINE AMINOTRANSFERASE,ALT 58 U/L (12-36); ALBUMIN 3.7 g/dL (3.5-5.2); ALKALINE PHOSPHATASE 130 IU/L (56-112); ASPARTATE AMNIOTRANSFERASE,AST 31 IU/L (5-25); PROTEIN TOTAL,TP 7.4 g/dL (6.0-8.0)
[2023-10-07 09:15] VITALS: BP 141/85; PULSE 80
[2023-10-07 09:15] LABS: C-REACTIVE PROTEIN 1.34 mg/dL (<0.50)
[2023-10-07] MEDS: Aluminum Hydroxide/Magnesium Hydroxide Susp 30 ML Cup PO ONE (09:25)
== END 2023-10-07 10:26 | disposition home or self-care (01) ==
LOC: FB.ED 07:47
DX: K21.00 Gastro-esophageal reflux disease with esophagitis, without bleeding (principal); Z79.899 Other long term (current) drug therapy; E66.9 Obesity, unspecified; Z68.36 Body mass index [BMI] 36.0-36.9, adult; Z86.16 Personal history of COVID-19; Z90.49 Acquired absence of other specified parts of digestive tract
CPT/HCPCS: 80053; 83690; 84484; 85025; 86140; 93005; 96361; 96374; 96375; 99284; A9270; J1200; J1885; J2405; J7030

== ENCOUNTER 2023-10-11 21:04 | Emergency (ER) | payer OTHER ==
[2023-10-11 22:03] VITALS: BP 124/74; PULSE 87
== END 2023-10-11 22:25 | disposition home or self-care (01) ==
LOC: FB.ED 21:04
DX: Z45.2 Encounter for adjustment and management of vascular access device (principal)
CPT/HCPCS: 99282

== ENCOUNTER 2024-03-27 09:11 | Emergency (ER) | payer OTHER ==
[2024-03-27 09:23] VITALS: BP 129/88; PULSE 60
[2024-03-27 09:58] LABS: BASOPHILS ABSOLUTE AUTO 0.1 x10-3/uL (0.0-0.3); BASOPHILS PERCENT AUTO 0.5 % (0.3-3.8); EOSINOPHILS ABSOLUTE AUTO 0.1 x10-3/uL (0.0-0.6); EOSINOPHILS PERCENT AUTO 1.2 % (0.1-6.8); HEMATOCRIT 44.4 % (38.3-50.1); HEMOGLOBIN 15.5 g/dL (12.9-17.7); LYMPHOCYTES ABSOLUTE AUTO 2.9 x10-3/uL (0.5-4.5); LYMPHOCYTES PERCENT AUTO 26.4 % (15.8-45.3); MEAN CORPUSCULAR HEMOGLOBIN 30.7 pg (27.0-33.3); MEAN CORPUSCULAR HGB CONC 34.9 g/dL (28.7-35.3); MONOCYTES ABSOLUTE AUTO 0.7 x10-3/uL (0.0-1.2); MONOCYTES PERCENT AUTO 6.3 % (5.5-15.2); NEUTROPHILS ABSOLUTE AUTO 7.2 x10-3/uL (1.7-6.9); NEUTROPHILS PERCENT AUTO 65.6 % (40.3-71.8); PLATELET COUNT,PLT 224 x10(3)uL (117-477); RED BLOOD CELL COUNT 5.04 x10(6)uL (3.90-5.90); RED CELL DISTRIBUTION WIDTH 12.8 % (12.4-15.0)
[2024-03-27 10:07] LABS: BLOOD UREA NITROGEN,BUN 15 mg/dL (7-18); CALCIUM 8.6 mg/dL (8.6-10.2); CARBON DIOXIDE,CO2 27 mmol/L (21-32); CHLORIDE,CL 104 mmol/L (100-110); EST CRCL DRUG DOSING (CG) 100.07 mL/min; ESTIMATED GFR 103 mL/min (>60); GLUCOSE RANDOM 116 mg/dL (80-116); POTASSIUM,K 3.9 mmol/L (3.5-5.3); SODIUM,NA 142 mmol/L (135-145)
[2024-03-27 10:14] LABS: A/G RATIO 1.2; ALANINE AMINOTRANSFERASE,ALT 40 U/L (12-36); ALBUMIN 3.7 g/dL (3.5-5.2); ALKALINE PHOSPHATASE 119 IU/L (56-112); ASPARTATE AMNIOTRANSFERASE,AST 20 IU/L (5-25); BILIRUBIN TOTAL 0.8 mg/dL (0.1-1.3); PROTEIN TOTAL,TP 6.9 g/dL (6.0-8.0)
[2024-03-27] MEDS: Ketorolac 30 MG/ML SDV IM ONE (10:41)
== END 2024-03-27 10:51 ==
LOC: FB.ED 09:11
DX: R07.81 Pleurodynia (principal); R07.89 Other chest pain; K21.9 Gastro-esophageal reflux disease without esophagitis; E66.9 Obesity, unspecified; Z86.16 Personal history of COVID-19; F17.210 Nicotine dependence, cigarettes, uncomplicated; Z79.899 Other long term (current) drug therapy; Z68.35 Body mass index [BMI] 35.0-35.9, adult
CPT/HCPCS: 36415; 80053; 84484; 85025; 93005; 96372; 99285; J1885

== ENCOUNTER 2024-07-15 20:21 | Emergency (ER) | payer OTHER ==
[2024-07-15] MEDS ORDERED: Lidocaine 1% 5 ML VIAL INFILT ONE (20:22)
[2024-07-15 20:38] VITALS: BP 121/83; PULSE 83
== END 2024-07-15 22:00 | disposition home or self-care (01) ==
LOC: FB.ED 20:21
DX: S01.112A Laceration without foreign body of left eyelid and periocular area, initial encounter (principal); K21.9 Gastro-esophageal reflux disease without esophagitis; E66.9 Obesity, unspecified; Z68.34 Body mass index [BMI] 34.0-34.9, adult; Z86.16 Personal history of COVID-19; Z90.49 Acquired absence of other specified parts of digestive tract; Z79.899 Other long term (current) drug therapy; W54.8XXA Other contact with dog, initial encounter
CPT/HCPCS: 12013; 99282

== ENCOUNTER 2024-08-08 12:27 | Emergency (ER) | payer OTHER ==
[2024-08-08] MEDS: Pantoprazole 40 MG Vial IVPUSH ONE (12:46)
[2024-08-08 13:02] LABS: BASOPHILS PERCENT AUTO 0.4 % (0.3-3.8); EOSINOPHILS ABSOLUTE AUTO 0.1 x10-3/uL (0.0-0.6); EOSINOPHILS PERCENT AUTO 1.4 % (0.1-6.8); HEMATOCRIT 45.1 % (38.3-50.1); HEMOGLOBIN 15.7 g/dL (12.9-17.7); LYMPHOCYTES ABSOLUTE AUTO 1.7 x10-3/uL (0.5-4.5); MEAN CORPUSCULAR HEMOGLOBIN 29.8 pg (27.0-33.3); MEAN CORPUSCULAR HGB CONC 34.9 g/dL (28.7-35.3); MEAN CORPUSCULAR VOLUME 85.5 fL (80.8-98.7); MEAN PLATELET VOLUME 8.4 fL (6.7-11.0); MONOCYTES ABSOLUTE AUTO 0.7 x10-3/uL (0.0-1.2); MONOCYTES PERCENT AUTO 12.2 % (5.5-15.2); PLATELET COUNT,PLT 178 x10(3)uL (117-477); RED BLOOD CELL COUNT 5.28 x10(6)uL (3.90-5.90); RED CELL DISTRIBUTION WIDTH 13.2 % (12.4-15.0); WHITE BLOOD CELL COUNT,WBC 5.5 x10-3/uL (3.2-10.1)
[2024-08-08 13:05] LABS: BLOOD UREA NITROGEN,BUN 19 mg/dL (7-18); CARBON DIOXIDE,CO2 26 mmol/L (21-32); CHLORIDE,CL 103 mmol/L (100-110); ESTIMATED GFR 103 mL/min (>60); GLUCOSE RANDOM 91 mg/dL (80-116); POTASSIUM,K 3.9 mmol/L (3.5-5.3); SODIUM,NA 137 mmol/L (135-145)
[2024-08-08 13:11] LABS: ALANINE AMINOTRANSFERASE,ALT 67 U/L (12-36); ALBUMIN 3.9 g/dL (3.5-5.2); ALKALINE PHOSPHATASE 122 IU/L (56-112); ASPARTATE AMNIOTRANSFERASE,AST 30 IU/L (5-25); BILIRUBIN TOTAL 0.8 mg/dL (0.1-1.3)
[2024-08-08] MEDS: Sodium Chloride 0.9% 1,000 ML IV ONE (13:23)
[2024-08-08] MEDS: Alum Hydroxide/Mag Hydroxide 15 ML, Lidocaine 2% 15 ML PO ONE (13:23)
[2024-08-08 16:49] VITALS: BP 140/91; PULSE 63
== END 2024-08-08 15:14 | disposition home or self-care (01) ==
LOC: FB.ED 12:27
DX: K21.9 Gastro-esophageal reflux disease without esophagitis (principal); E86.0 Dehydration; R74.01 Elevation of levels of liver transaminase levels; E66.9 Obesity, unspecified; F17.210 Nicotine dependence, cigarettes, uncomplicated; Z86.16 Personal history of COVID-19; Z90.49 Acquired absence of other specified parts of digestive tract; Z79.899 Other long term (current) drug therapy; Z68.36 Body mass index [BMI] 36.0-36.9, adult
CPT/HCPCS: 36415; 80053; 84484; 85025; 86140; 93005; 96361; 96374; 99285; A9270; J2470; J7030

== ENCOUNTER 2024-08-15 20:11 | Emergency (ER) | payer OTHER ==
[2024-08-15] MEDS ORDERED: Ondansetron 4 MG Tab.DIS PO ONE (20:12)
[2024-08-15 22:03] LABS: BASOPHILS PERCENT AUTO 0.4 % (0.3-3.8); EOSINOPHILS PERCENT AUTO 0.6 % (0.1-6.8); HEMATOCRIT 38.8 % (38.3-50.1); HEMOGLOBIN 13.6 g/dL (12.9-17.7); LYMPHOCYTES ABSOLUTE AUTO 0.8 x10-3/uL (0.5-4.5); LYMPHOCYTES PERCENT AUTO 12.2 % (15.8-45.3); MEAN CORPUSCULAR HEMOGLOBIN 29.7 pg (27.0-33.3); MEAN CORPUSCULAR HGB CONC 35.1 g/dL (28.7-35.3); MEAN CORPUSCULAR VOLUME 84.7 fL (80.8-98.7); MEAN PLATELET VOLUME 8.3 fL (6.7-11.0); MONOCYTES ABSOLUTE AUTO 0.6 x10-3/uL (0.0-1.2); NEUTROPHILS PERCENT AUTO 77.8 % (40.3-71.8); PLATELET COUNT,PLT 266 x10(3)uL (117-477); RED BLOOD CELL COUNT 4.59 x10(6)uL (3.90-5.90); WHITE BLOOD CELL COUNT,WBC 6.4 x10-3/uL (3.2-10.1)
[2024-08-15 22:04] LABS: BLOOD UREA NITROGEN,BUN 11 mg/dL (7-18); CALCIUM 8.7 mg/dL (8.6-10.2); CARBON DIOXIDE,CO2 26 mmol/L (21-32); CHLORIDE,CL 102 mmol/L (100-110); CREATININE 1.1 mg/dL (0.70-1.30); EST CRCL DRUG DOSING (CG) 90.97 mL/min; ESTIMATED GFR 92 mL/min (>60); GLUCOSE RANDOM 87 mg/dL (80-116); POTASSIUM,K 3.3 mmol/L (3.5-5.3); SODIUM,NA 138 mmol/L (135-145)
[2024-08-15 22:10] LABS: A/G RATIO 1.1; ALANINE AMINOTRANSFERASE,ALT 76 U/L (12-36); ALBUMIN 3.8 g/dL (3.5-5.2); ALKALINE PHOSPHATASE 118 IU/L (56-112); ASPARTATE AMNIOTRANSFERASE,AST 33 IU/L (5-25); BILIRUBIN TOTAL 0.8 mg/dL (0.1-1.3); MAGNESIUM 1.6 mg/dL (1.8-2.5); PROTEIN TOTAL,TP 7.2 g/dL (6.0-8.0)
[2024-08-15] MEDS: predniSONE 20 MG Tab PO ONE (22:27)
[2024-08-15] MEDS: Albuterol 0.083% 2.5 MG/3 ML Neb Soln NEB ONE (22:27)
[2024-08-15] MEDS: Albuterol/Ipratropium 3.0-0.5 MG/3 ML Neb Soln NEB ONE (22:27)
[2024-08-15] MEDS: Potassium Chloride 20 MEQ Tab.ER PO ONE (23:22)
[2024-08-15] MEDS: Magnesium Oxide 400 MG Tab PO ONE (23:22)
[2024-08-15] MEDS: Ondansetron 4 MG/2 ML SDV IVPUSH ONE (23:42)
[2024-08-15] MEDS: Sodium Chloride 0.9% 10 ML Syringe FLUSH PRN (23:44)
[2024-08-15] MEDS: Sodium Chloride 0.9% 1,000 ML IV ONE (23:46)
[2024-08-16] MEDS: Metoclopramide 10 MG/2 ML SDV IVPUSH ONE (00:34)
[2024-08-16] MEDS: Ketorolac 30 MG/ML SDV IVPUSH ONE (00:35)
[2024-08-16] MEDS: Alum Hydroxide/Mag Hydroxide 15 ML, Lidocaine 2% 15 ML PO ONE (00:56)
[2024-08-16 01:15] VITALS: BP 135/72; PULSE 102
== END 2024-08-16 01:40 | disposition home or self-care (01) ==
LOC: FB.ED 20:11
DX: J45.41 Moderate persistent asthma with (acute) exacerbation (principal); J10.1 Influenza due to other identified influenza virus with other respiratory manifestations; E86.0 Dehydration; K21.9 Gastro-esophageal reflux disease without esophagitis; E66.9 Obesity, unspecified; Z86.16 Personal history of COVID-19; Z87.891 Personal history of nicotine dependence; Z79.899 Other long term (current) drug therapy; Z68.36 Body mass index [BMI] 36.0-36.9, adult
CPT/HCPCS: 36415; 71046; 80053; 83735; 84484; 85025; 87428; 93005; 94640; 96361; 96374; 96375; 99285; A9270; J1885; J2405; J2765; J7030; J7512; Q0162; J7620

== ENCOUNTER 2025-02-04 20:58 | Emergency (ER) | payer OTHER ==
[2025-02-04 21:11] VITALS: BP 139/96; PULSE 88
[2025-02-04] MEDS: Diphtheria,Pertussis(Acell),Tetanus Vaccine 0.5 ML Syringe IM ONE (21:49)
== END 2025-02-04 21:52 | disposition home or self-care (01) ==
LOC: FB.ED 20:58
DX: S81.811A Laceration without foreign body, right lower leg, initial encounter (principal); K21.9 Gastro-esophageal reflux disease without esophagitis; F17.210 Nicotine dependence, cigarettes, uncomplicated; Z79.899 Other long term (current) drug therapy; Z79.51 Long term (current) use of inhaled steroids; Z86.16 Personal history of COVID-19; Z23 Encounter for immunization; W23.1XXA Caught, crushed, jammed, or pinched between stationary objects, initial encounter; Y93.89 Activity, other specified
CPT/HCPCS: 12004; 90471; 90715; 99282-25; J2003